=== PATIENT | male | born 1940 | race Caucasian/White ===

== ENCOUNTER → 2016-05-09 | Outpatient (CLI) | payer MEDICARE, OTHER | END | disposition home or self-care (01) | LOC: LABWHC1 11:12 | PROVIDERS: ATTEND Orthopaedic Surgery Sports Medicine | DX: Z01.812 Encounter for preprocedural laboratory examination (principal) | CPT/HCPCS: 87070 ==

== ENCOUNTER → 2016-05-16 | Outpatient (CLI) | payer MEDICARE ==
[2016-05-16 15:40] LABS: Basophils # (A) 0.1 k/uL (0-0.2); Basophils % (A) 1 %; CH 29.9; CHCM 33.1; Eosinophils # (A) 0.2 k/uL (0-0.7); Eosinophils % (A) 2 %; HCT 46.6 % (39.0-53.0); HDW 2.43; HGB 15.3 gm/dL (13.0-17.5); Luc % (Auto) 3; Lymphocytes # (A) 2.1 k/uL (1.0-4.8); Lymphocytes % (A) 23 %; MCH 29.8 pg (25.0-35.0); MCHC 32.9 g/dL (31.0-37.0); MCV 90.7 fL (80.0-100.0); Mean Platelet Volume 7.2; Monocytes # (A) 0.6 k/uL (0-1.0); Monocytes % (A) 7 %; Neutrophils # (A) 5.7 k/uL (1.3-7.7); Neutrophils % (A) 64 %; RBC 5.13 m/uL (4.30-5.90); RDW 13.2 % (11.5-15.5)
[2016-05-16 15:42] LABS: Appearance,Urine Clear (Clear); Bilirubin,Urine Negative (Negative); Glucose,Urine (UA) Negative (Negative); Ketones,Urine Negative (Negative); Leukocyte Esterase,Urine Negative (Negative); Nitrite,Urine Negative (Negative); Protein,Urine Negative (Negative); Specific Gravity,Urine 1.002 (1.001-1.035); UA Billing (MACRO vs. MICRO) CHEM; Urobilinogen,Urine <2.0 mg/dL (<2.0)
[2016-05-16 15:46] LABS: Partial Thromboplastin Time 24.4 sec (22.0-30.0); Prothrombin Time 10.1 sec (9.0-12.0)
[2016-05-16 15:48] LABS: ALT 30 U/L (21-72); AST 24 U/L (17-59); Alkaline Phosphatase 61 U/L (38-126); Anion Gap 9 mmol/L; Blood Urea Nitrogen 13 mg/dL (9-20); Calcium 9.7 mg/dL (8.4-10.2); Carbon Dioxide 28 mmol/L (22-30); Chloride 104 mmol/L (98-107); Glucose 82 mg/dL (74-99); Non-African American GFR(MDRD) >60 (>60 ml/min/1.73 sqM); Potassium 4.4 mmol/L (3.5-5.1); Sodium 141 mmol/L (137-145); Total Protein 7.2 g/dL (6.3-8.2)
== END | disposition home or self-care (01) ==
LOC: LABPAT 15:05
PROVIDERS: ATTEND Orthopaedic Surgery Sports Medicine
DX: Z01.812 Encounter for preprocedural laboratory examination (principal); Z79.01 Long term (current) use of anticoagulants
CPT/HCPCS: 80053; 81003; 85025; 85610; 85730; 87070

== ENCOUNTER 2016-05-30 09:02 | Inpatient (IN) | payer MEDICARE, OTHER ==
[2016-05-24 10:51] VITALS: BMI 27.8
[~2016-05-30 09:02] MED LIST: ACETAMINOPHEN TAB 500 MG TAB PO ONE; DEXAMETHASONE SOD PHOSPHATE 10 MG/ML 1 ML VIAL IV ONE; HYDROmorphone 1 MG/ML 1 ML SYRINGE IVP PRN; LACTATED RINGERS 1,000 ML IV SCH; MELOXICAM 7.5 MG TAB PO ONE; ONDANSETRON 4 MG/2 ML VIAL IVP ONE; ROPIVACAINE 246.25 MG, EPINEPHrine 0.5 MG, KETOROLAC 30 MG, cloNIDine HCL/PF 80 MCG, WA... MISCELLANE ONE; TRANEXAMIC ACID 1,000 MG in SODIUM CHLORIDE 0.9% 100 ML IVPB ONE; ceFAZolin 2 GM in SODIUM CHLORIDE 0.9% 100 ML IVPB ONE
[2016-05-30] MEDS ORDERED: LIDOCAINE 1% 20 ML VIAL (10MG/ML) FOR IV START INTRADERMA ONE (09:50)
[2016-05-30] MEDS ORDERED: diphenhydrAMINE 50 MG/ML 1 ML VIAL ONE (11:10)
[2016-05-30] MEDS ORDERED: fentaNYL (PF) 50 MCG/ML 2 ML AMP ONE (11:10)
[2016-05-30] MEDS ORDERED: ePHEDrine 50 MG/ML 1 ML AMP ONE (11:10)
[2016-05-30] MEDS ORDERED: TRANEXAMIC ACID 1,000 MG/10 ML VIAL ONE (11:10)
[2016-05-30] MEDS ORDERED: PROPOFOL 10 MG/ML 20 ML VIAL IV ONE (11:10)
[2016-05-30] MEDS ORDERED: MIDAZOLAM 2 MG/2 ML VIAL ONE (11:10)
[2016-05-30] MEDS ORDERED: MORPHINE SULFATE (PF) 0.3 MG/0.3 ML SYR ONE (11:10)
[2016-05-30] MEDS ORDERED: SODIUM CHLORIDE 0.9% 100 ML BAG ONE (11:10)
[2016-05-30] MEDS ORDERED: ceFAZolin 3,000 MG in SODIUM CHLORIDE 0.9% IRRIGATIO 3,000 ML IRRIGATION ONE (11:15)
[2016-05-30] MEDS ORDERED: LACTATED RINGERS 1,000 ML IV ONE (12:13)
[2016-05-30] MEDS ORDERED: MAGNESIUM HYDROXIDE 2,400 MG/10 ML CUP PO PRN (13:26)
[2016-05-30] MEDS ORDERED: NALOXONE 0.4 MG/ML 1 ML VIAL IV PRN ×2 (13:26→15:32)
[2016-05-30] MEDS ORDERED: ONDANSETRON 4 MG/2 ML VIAL IVP PRN (13:26)
[2016-05-30] MEDS ORDERED: DIAZEPAM 5 MG TAB PO PRN (13:26)
[2016-05-30] MEDS ORDERED: HYDROmorphone 1 MG/ML 1 ML SYRINGE IVP PRN ×2 (13:26)
[2016-05-30] MEDS ORDERED: TEMAZEPAM 15 MG CAP PO PRN (13:26)
[2016-05-30] MEDS ORDERED: NA PHOS,M-B/NA PHOS,DI-BA 133 ML ENEMA RECTAL PRN (13:26)
[2016-05-30] MEDS ORDERED: BISACODYL 10 MG SUPP RECTAL PRN (13:26)
--- NOTE | 2016-05-30 13:45 | XR ---
EXAMINATION TYPE: XR knee limited LT DATE OF EXAM: 05/30/2016 1:39 PM COMPARISON: NONE TECHNIQUE: 2 view submitted HISTORY: Post op FINDINGS: There is a prosthetic knee in near anatomic alignment. There is soft tissue edema and emphysema. IMPRESSION: 1. Postoperative change. Appears in near-anatomic alignment
[2016-05-30] MEDS: LACTATED RINGERS 1,000 ML IV SCH (14:23)
[2016-05-30] MEDS ORDERED: NALBUPHINE 10 MG/ML AMPUL IV PRN (15:32)
[2016-05-30] MEDS ORDERED: PROMETHAZINE INJ 6.25 MG in SODIUM CHLORIDE 0.9% 50 ML IVPB PRN (15:32)
[2016-05-30] MEDS ORDERED: MORPHINE SULFATE 4 MG/ML SYRINGE IVP PRN (15:32)
[2016-05-30] MEDS ORDERED: diphenhydrAMINE 50 MG/ML 1 ML VIAL IVP PRN (15:32)
[2016-05-30] MEDS: SENNOSIDES-DOCUSATE SODIUM 1 EACH TAB PO SCH ×2 (20:41→20:45)
[2016-05-30] MEDS: ceFAZolin 2 GM in SODIUM CHLORIDE 0.9% 100 ML IVPB SCH (20:41)
[2016-05-30] MEDS: ATORVASTATIN 10 MG TAB PO SCH (20:45)
[2016-05-30] MEDS: ASPIRIN 325 MG TAB PO SCH (20:48)
[2016-05-30] MEDS ORDERED: ASPIRIN 81 MG CHEW PO SCH (21:00)
--- NOTE | 2016-05-30 21:55 | CONS ---
DATE OF CONSULTATION: REASON FOR CONSULTATION: Recommendations regarding antihypertensive medications. Perioperative hypertension management. The patient is a very pleasant 76 -year-old gentleman, he was admitted to the hospital for left knee arthroplasty. The patient successfully underwent surgery. The patient last night took Coumadin as DVT prophylaxis for left knee surgery. The patient clinically doing well. The patient denies any fever or chills. The patient denies any nausea and vomiting, dysuria. The patient still has a Toth catheter. The patient still has a Toth catheter. The patient has surgical drain at this point of time. REVIEW OF SYSTEMS: CONSTITUTIONAL: No fever, no malaise, no fatigue. HEENT: No recent visual problems or hearing problems. Denied any sore throat. CARDIOVASCULAR: No chest pain, orthopnea, PND, no palpitations, no syncope. PULMONARY: No shortness of breath, no cough, no hemoptysis. GASTROINTESTINAL: No diarrhea, no nausea, no vomiting, no abdominal pain. Normoactive bowel sounds. NEUROLOGICAL: No headaches, no weakness, no numbness. HEMATOLOGICAL: Denies any bleeding or petechiae. GENITOURINARY: Denies any burning micturition, frequency, or urgency. MUSCULOSKELETAL/RHEUMATOLOGICAL: Defer to orthopedic surgery. ENDOCRINE: Denies any polyuria or polydipsia. The rest of the 14 point review of systems is negative. PAST MEDICAL HISTORY: Significant for coronary artery disease, hyperlipidemia, hypertension, osteoarthritis, myocardial infarction in the past, left eye cataract surgery, cardiac catheterization and stent placement in the past, hernia repair, left knee arthroscopy in the past. SOCIAL HISTORY: Former smoker. Quit smoking 30 years ago. Denied any alcohol abuse or any drug abuse. FAMILY HISTORY: Significant for DVT. PHYSICAL EXAMINATION: Temperature 98.5, pulse of 67, respiratory rate of 16, blood pressure is 103/57, saturating at 96% on room air. GENERAL: The patient is alert and oriented x3, not in any acute distress. Well developed, well nourished. HEENT: Pupils are round and equally reacting to light. EOMI. No scleral icterus. No conjunctival pallor. Normocephalic, atraumatic. No pharyngeal erythema. No thyromegaly. CARDIOVASCULAR: S1 and S2 present. No murmurs, rubs, or gallops. PULMONARY: Chest is clear to auscultation, no wheezing or crackles. ABDOMEN: Soft, nontender, nondistended, normoactive bowel sounds. No palpable organomegaly. MUSCULOSKELETAL: Defer to orthopedic surgery. EXTREMITIES: No cyanosis, clubbing, or pedal edema. NEUROLOGICAL: Gross neurological examination did not reveal any focal deficits. SKIN: No rashes. LABORATORY DATA: None available. ASSESSMENT AND PLAN: 1. Hypertension and prevention of perioperative hypertension. I will hold off on Lisinopril continue with atenolol 2. Coronary artery disease. 3. Hyperlipidemia. 4. Osteoarthritis status post left knee arthroplasty management as per primary service. 5. DVT prophylaxis per primary service for primary service. For above-mentioned chronic medical problems, I will go ahead and continue his home medications except for Lisinopril to monitor blood pressure, management of pain and DVT prophylaxis as per primary service. Thank you for letting me participate in this patient's care. We will continue to follow.
[2016-05-31] MEDS: LACTATED RINGERS 1,000 ML IV SCH ×2 (03:35→11:24)
--- NOTE | 2016-05-31 07:04 | OP ---
DATE OF SERVICE: 05/30/2016 SURGEON: CAMERON MORALES MD [employer] CONSULTANT: Silvino Granger PA-C PREOPERATIVE DIAGNOSIS: Left knee osteoarthrosis. POSTOPERATIVE DIAGNOSIS: Left knee osteoarthrosis. OPERATION: Left total knee arthroplasty. ANESTHESIA: Spinal with sedation. ESTIMATED BLOOD LOSS: 100 mL. TOURNIQUET TIME: 61 minutes at 250 mmHg. SPECIMENS REMOVED: COMPLICATIONS: None apparent. DRAINS: None. DISPOSITION: Post anesthesia care unit. OPERATIVE FINDINGS: INDICATIONS: Marvin is a very pleasant 76-year-old male with long-standing history of left knee pain. History and physical examination consistent with advanced left knee osteoarthrosis. He has been through significant nonoperative management up to this point. Further treatment options were discussed and he has decided to go forward with a left total knee arthroplasty. The risks of the procedure were discussed with him in detail. These risks include, but are not limited to risk of infection, nerve damage, bleeding, pain, and a risk of deep vein thrombosis, which could lead to fatal pulmonary embolism. There was also a risk of loosening of the implant, which could require revision operation. The patient understands these risks. All of his questions with regards to the procedure were answered to his satisfaction. An appropriate informed consent was obtained. DESCRIPTION OF THE PROCEDURE: The patient was identified in the preoperative holding area. Surgical site was marked by both the patient and myself. He was given 2 grams of Ancef IV for prophylactic purposes. He was then transferred to the operative suite where he was placed supine on the operating room table. A spinal anesthetic was then administered and dosed by the anesthesia department without apparent complication. Examination under anesthesia was then performed. The patient was 10 degrees shy of full extension. He had 100 degrees of flexion and the medial collateral ligament, lateral collateral ligament and posterior cruciate ligaments were stable. Tourniquet was then placed high on the left upper thigh, well padded in preparation for surgery. The patient's left lower extremity was then prepped and draped in the usual sterile fashion. Standard surgical pause was then undertaken to ensure that we were operating on the correct site and that appropriate preoperative antibiotics had been given. All staff in the room were in agreement and we proceeded. The outlines of the patella were marked with surgical pen. A planned 12 cm vertical incision centered over the patella was marked with a surgical pen. The leg was then exsanguinated with an Esmarch dressing. The knee was then flexed and the tourniquet inflated to 250 mmHg. The total tourniquet time for the procedure was 61 minutes. Incision was then made with a 10 blade scalpel. Dissection was carried down sharply to the overlying fascia. Great care was taken to minimize the skin flaps. The knee was then exposed using a standard medial parapatellar approach. A small cuff of quadriceps tendon was then left for suturing. He was in quite a bit of varus preoperatively. A standard medial release was then made. Superficial medial collateral ligament was dissected off the bone around to the posterior aspect of the proximal tibia. The medial meniscus was then excised as well. The lateral meniscus was also released anteriorly. The leg was then externally rotated. The patella was then everted and the knee was flexed. Retractors were then placed to protect the collateral ligaments. I then proceeded to remove the infrapatellar fat pad. This was excised sharply tangentially with the fibers of the patellar tendon. I then proceeded with removal peripheral osteophytes. This was done with a rongeur. I then proceeded with distal femoral resection. He had a flexion contracture. I planned to take an extra 2 mm resection off the distal femur. The femoral canal was then entered in the midline of the femur approximately 10 mm anterior to the origin of the posterior cruciate ligament. The sandra was then advanced down the center of the femur and the sandra was placed intramedullary. Based on preoperative radiographs, the angle between the anatomic and mechanical axis of the femur was approximately 4 to 5 degrees. The valgus angle with this femoral cutting guide was then set at 4 degrees for the left knee. The distal femoral cutting guide was then advanced over the intramedullary sandra. This was seated firmly against the femur. I then, as mentioned, planned to take 11 mm off of the distal femur. The cutting block was then secured onto the femur with pins. Jig was then removed and the distal femoral cuts were made through the slot of the block. The pins were then removed and the distal femoral cutting block was removed. The accuracy of the distal femoral cuts was checked with 2 flat bars. I then proceeded with femoral sizing. The posterior referencing sizing guide was held firmly against the resected distal surface of the femur. Posterior condyles were resting on the posterior plane of the guide. The sizing status was then placed onto the anterior femur. The size was measured as a size 11. I then assessed for femoral rotation. The plan was for 3 degrees of external rotation. 3 degrees of external rotation was placed onto the jig. These holes were then marked. I then confirmed rotation by 3 separate methods. This was done using the epicondylar axis as well as Whitesides line and posterior referencing. It was deemed that the external rotation was proper. I then went forward placing the femoral cutting block. This was placed over the previously placed pinholes. The garrett wing was then placed onto the anterior slots to ensure that we would not notch the anterior femur with the anterior femoral cut. I then proceeded with the anterior femoral cut. This was flushed with the anterior cortex of the femur. Posterior cuts were then made followed by the anterior chamfer cut and the posterior chamfer cut. The cutting block was then removed. Throughout the resection, the collateral ligaments were protected with retractors. I then placed a trial size 11 femur. It fit very nice medial to lateral and fit flush with the distal end of the femur. The drill holes were then made. I then proceeded with the tibial cut. I planned for a cruciate-retaining knee. The guide was placed and set for varus valgus and for slope. The height was set for an approximate 2 mm resection from the medial tibial plateau, which was the lower side. I was happy with the alignment and the amount of resection. The cutting block was then pinned to the proximal tibia. The alignment sandra was removed and the proximal tibia was resected with the reciprocating saw. Again this was done with retractors, protecting the collateral ligaments as well as the posterior cruciate ligament. I then proceeded to evaluate the flexion and extension gaps. A 10 mm block was placed. The flexion and extension gaps were equal. I then proceeded with resection of the posterior osteophytes. He had very extensive posterior osteophytes. This was done using curved osteotome. This resected the posterior osteophytes and posterior capsule stripping was also done at this time off the posterior aspect of the femur. The osteophytes were removed. I then proceeded with resection of the patella. Thickness of the patella was measured using the caliper. The thickness was 26 mm. The thickness of the anticipated patellar dome was taken into account. Resection was then performed and confirmed to be equal in 4 quadrants using the caliper. Approximately 14 mm of bone remained after the resection. A 35 x 9 mm standard patellar trial was then placed. The holes were then drilled and the trial was then placed. I then proceeded with sizing tibial plate. A size G tibial plate fit very nicely. I then placed a trial femur, the tibial tray and the patellar button. A 10 mm trial tibial insert was also placed. The components fit very nicely. He had full extension and flexion. The extension and flexion gaps were equal and stable to varus and valgus stress. The patella tracked appropriately. The tibial tray rotation was then marked with a Bovie. This was externally rotated properly. I then proceeded with tibial preparation. I first drilled femoral holes and removed femoral component. The tibial tray was then set for proper external rotation as well as mediolateral placement onto the tibia. It was then pinned into place. I then proceeded with punching the keel. I then decided to proceed with cementing of all of our components. The knee was thoroughly irrigated with sterile saline solution via pulse lavage. The lateral geniculate artery was identified and cauterized. All blood was removed from the bone of the tibia, femur and patella with pulse lavage. I then proceeded with cementing. Two packs of antibiotic bone cement were prepared on the back table by the forklift technician. I then proceeded with cementing of the tibia first. The cement was impacted in the keel as well as deeply seated into bone. A second coat of cement was then placed. The tibia was then impacted into place. Excess cement was removed with cushings and jokers. I then proceeded with cementing of femoral component. The femoral component was also cemented using standard technique. Excess cement was removed. A 10 mm trial insert was then placed into the knee. It was brought into full extension with constant axial load placed until the cement had hardened. The patellar component was then cemented. This was held firmly with a compressive device until the cement had dried. When the cement had dried, the knee was taken out of extension. All excess cement was removed from around the prosthesis. I then trialed the knee with a 10 mm insert. Flexion-extension gaps were appropriate. The knee came into full extension. I decided to go forward with a 10 mm crosslinked cruciate retaining tibial insert. Polyethylene was then placed onto the tibial tray and locked. The knee was then reduced. The knee was again further irrigated with sterile saline solution with antibiotic added. The tourniquet was then deflated. Total tourniquet time for the procedure was 61 minutes at 250 mmHg. Final components were a Bassam Persona size 11 cruciate-retaining femoral component, a size G tibial tray, a 10 mm cruciate retaining polyethylene insert and a 35 x 9 mm patella. I then proceeded with closure. Again, the knee was thoroughly irrigated. The quadriceps tendon and the medial retinaculum were reapproximated with #2 Ethibond suture. The extensor mechanism was then closed with running #2 Quill suture. Subcutaneous tissues were closed with 2-0 Vicryl interrupted suture. Skin was closed with running 3-0 Quill suture. Dermabond was applied to the incision. Sterile compressive dressings were then applied. All sponge and needle counts were deemed correct prior to closure. The patient tolerated the procedure without apparent complication. He was transferred to recovery room in stable condition.
[2016-05-31 07:54] LABS: Basophils % (A) 0 %; CH 29.1; Eosinophils % (A) 0 %; HCT 38.9 % (39.0-53.0); HDW 2.37; HGB 12.8 gm/dL (13.0-17.5); Luc # (Auto) 0.14; Luc % (Auto) 1; Lymphocytes % (A) 8 %; MCHC 32.8 g/dL (31.0-37.0); MCV 88.2 fL (80.0-100.0); Monocytes # (A) 0.8 k/uL (0-1.0); Monocytes % (A) 6 %; Neutrophils # (A) 11.5 k/uL (1.3-7.7); Neutrophils % (A) 85 %; WBC 13.4 k/uL (3.8-10.6); WBC (Perox) 13.32
[2016-05-31] MEDS: HYDROcodone/APAP 7.5-325MG 1 EACH TAB PO PRN ×3 (08:25→20:47)
[2016-05-31] MEDS: ASPIRIN 325 MG TAB PO SCH ×2 (08:25→20:22)
[2016-05-31] MEDS: ATENOLOL 50 MG TAB PO SCH (08:26)
[2016-05-31] MEDS: ceFAZolin 2 GM in SODIUM CHLORIDE 0.9% 100 ML IVPB SCH (08:53)
--- NOTE | 2016-05-31 09:27 | P.PN ---
Subjective Principal diagnosis: Status post left total knee arthroplasty Patient is pleasant 76-year-old male seen at bedside this morning. He is postop day #1 from left total knee arthroplasty performed by Dr. Peraza. He has no new complaints. He denies numbness or tingling. Review of systems is negative for fever, chills, chest pain, shortness breath, nausea, vomiting, dizziness, headaches or other. Objective - Vital Signs Vital signs: Vital Signs Temp 97.2 F L 05/31/16 07:00 Pulse 70 05/31/16 08:00 Resp 16 05/31/16 08:00 BP 144/67 05/31/16 07:00 Pulse Ox 97 05/31/16 07:00 Intake & Output 05/30/16 05/31/16 05/31/16 18:59 06:59 18:59 Intake Total 2000 900 Output Total 155 60 430 Balance 1846 840 -430 Intake: IV 2000 900 Lactated Ringers 1,000 ml 900 @ 100 mls/hr IV .Q10H [facility] Rx#:[id number] Output: Urine 55 60 430 Uretheral (Toth) 400 Estimated Blood Loss 100 Other: Voiding Method Indwelling Catheter Indwelling Catheter - Exam Inspection of the left lower extremity and surgical wound are benign. There is no active bleeding, drainage or dehiscence. Sensation to touch is intact throughout the left lower extremity. He has active motor at the hip, knee, ankle, foot and toes. Calf is soft and nontender. There is 2+ dorsalis pedis pulse intact and less than 2 second cap refill. - Constitutional General appearance: Present: no acute distress - Psychiatric Psychiatric: Present: A&O x's 3, appropriate affect, intact judgment & insight - Labs CBC & Chem 7: 05/31/16 06:53 Labs: Abnormal Lab Results - Last 24 Hours (Table) 05/31/16 Range/Units 06:53 WBC 13.4 H (3.8-10.6) k/uL Hgb 12.8 L (13.0-17.5) gm/dL Hct 38.9 L (39.0-53.0) % Neutrophils # 11.5 H (1.3-7.7) k/uL Assessment and Plan (1) Status post total knee replacement, left Narrative/Plan: Patient will continue with routine postop orthopedic protocol including pain management, wound care, physical therapy, DVT prophylaxis and medical management. Expect that he will transfer to an extended care facility in the next few days for rehabilitation. Status: Acute Time with Patient: Less than 30
--- NOTE | 2016-05-31 10:23 | P.PN ---
Subjective status post duramorph day one; doing ok; no spinal headache. Objective - Vital Signs Vital signs: Vital Signs Temp 97.2 F L 05/31/16 07:00 Pulse 70 05/31/16 08:00 Resp 16 05/31/16 08:00 BP 144/67 05/31/16 07:00 Pulse Ox 97 05/31/16 07:00 Intake & Output 05/30/16 05/31/16 05/31/16 18:59 06:59 18:59 Intake Total 2000 900 Output Total 155 60 430 Balance 1846 840 -430 Intake: IV 2000 900 Lactated Ringers 1,000 ml 900 @ 100 mls/hr IV .Q10H [facility] Rx#:[id number] Output: Urine 55 60 430 Uretheral (Toth) 400 Estimated Blood Loss 100 Other: Voiding Method Indwelling Catheter Indwelling Catheter - Labs CBC & Chem 7: 05/31/16 06:53 Labs: Abnormal Lab Results - Last 24 Hours (Table) 05/31/16 Range/Units 06:53 WBC 13.4 H (3.8-10.6) k/uL Hgb 12.8 L (13.0-17.5) gm/dL Hct 38.9 L (39.0-53.0) % Neutrophils # 11.5 H (1.3-7.7) k/uL
[2016-05-31] MEDS: MULTIVITAMINS, THERA 1 EACH TAB PO SCH (14:46)
--- NOTE | 2016-05-31 18:14 | PN ---
Patient is a 76-year-old admitted for left knee arthroplasty. Patient is clinically doing well. Patient did pass gas. I am starting him on 5 mg of lisinopril today because of his increasing blood pressure. REVIEW OF SYSTEMS: CARDIOVASCULAR: No chest pain, no orthopnea, no PND, no palpitations. PULMONARY: Denied any shortness of breath. No cough or hemoptysis. GASTROINTESTINAL: No diarrhea, nausea or vomiting. No abdominal pain. Normoactive bowel sounds. NEUROLOGIC: No headaches, no weakness, no numbness. Medications were reviewed. PHYSICAL EXAMINATION: VITAL SIGNS: Temperature 97.2, pulse of 70, respiratory rate of 16. Blood pressure is 144/67. Saturating at 97% on room air. GENERAL: The patient is alert and oriented x3, not in any acute distress. Well developed, well nourished. HEENT: Pupils are round and equally reacting to light. EOMI. No scleral icterus. No conjunctival pallor. Normocephalic, atraumatic. No pharyngeal erythema. No thyromegaly. CARDIOVASCULAR: S1 and S2 present. No murmurs, rubs, or gallops. PULMONARY: Chest is clear to auscultation, no wheezing or crackles. ABDOMEN: Soft, nontender, nondistended, normoactive bowel sounds. No palpable organomegaly. MUSCULOSKELETAL: No joint swelling or deformity. EXTREMITIES: No cyanosis, clubbing, or pedal edema. NEUROLOGICAL: Gross neurological examination did not reveal any focal deficits. SKIN: No rashes. LABORATORY DATA: WBC count elevated to 13,400, which is a reactive response. ASSESSMENT AND PLAN: 1. Leukocytosis without any signs or symptoms of infection; it is a reactive response. 2. Hypertension. Continue with atenolol. Started on 5 mg of lisinopril. If patient is discharged, he can be continued on the home dose of lisinopril and can be discharged. 3. Coronary artery disease. 4. Hyperlipidemia. 5. Osteoarthritis. DVT prophylaxis and pain management as mentioned above. Thank you for letting me participate in this patient's care. If the patient stays here until Friday, will follow the patient on Friday.
[2016-05-31] MEDS: ATORVASTATIN 10 MG TAB PO SCH (20:21)
[2016-05-31] MEDS: SENNOSIDES-DOCUSATE SODIUM 1 EACH TAB PO SCH (20:47)
[2016-06-01] MEDS: HYDROcodone/APAP 7.5-325MG 1 EACH TAB PO PRN ×4 (02:16→18:01)
[2016-06-01] MEDS: ATENOLOL 50 MG TAB PO SCH (07:38)
[2016-06-01] MEDS: MULTIVITAMINS, THERA 1 EACH TAB PO SCH (07:38)
[2016-06-01] MEDS: LISINOPRIL 5 MG TAB PO SCH (07:38)
[2016-06-01] MEDS: ASPIRIN 325 MG TAB PO SCH ×2 (07:38→20:21)
--- NOTE | 2016-06-01 08:41 | P.PN ---
Subjective Principal diagnosis: Status post left total knee arthroplasty This is a 76 year-old male post left total knee arthroplasty. This is post-op day 2. The patient was evaluated at the bedside today. The patient denies nausea, vomiting, abdominal pain, shortness of breath, and chest pain this morning. He states his pain is controlled at this time. The patient has not been up with physical therapy yet this morning but ambulated to the bathroom yesterday. Objective - Vital Signs Vital signs: Vital Signs Temp 98.4 F 06/01/16 02:17 Pulse 60 06/01/16 02:17 Resp 19 06/01/16 02:17 BP 121/59 06/01/16 02:17 Pulse Ox 99 06/01/16 02:17 Intake & Output 05/31/16 06/01/16 06/01/16 18:59 06:59 18:59 Intake Total 200 Output Total 430 Balance -230 Intake: IV 200 Lactated Ringers 1,000 ml 200 @ 100 mls/hr IV .Q10H [facility] Rx#:[id number] Output: Urine 430 Uretheral (Toth) 400 - Exam The patient does not appear in acute distress. Alert and orientated x3. Dressing is clean dry and intact. Incision appears fine with no erythema or active drainage. Calf is soft and nontender. Good foot and ankle motion without difficulty. Sensation and circulatory status is intact. - Labs CBC & Chem 7: 05/31/16 06:53 Assessment and Plan (1) Status post total knee replacement, left Status: Acute (2) Primary localized osteoarthritis of left knee Status: Acute Plan: 1. Continue pain control 2. Anticoagulation with Aspirin BID 3. Continue physical therapy and ambulation 4. Anticipate discharge to skilled rehab on Friday
[2016-06-01] MEDS: LACTATED RINGERS 1,000 ML IV SCH (09:50)
[2016-06-01] MEDS: hydrOXYzine PAMOATE 25 MG CAP PO PRN ×2 (12:58→18:01)
[2016-06-01] MEDS: ATORVASTATIN 10 MG TAB PO SCH (20:21)
[2016-06-01] MEDS: SENNOSIDES-DOCUSATE SODIUM 1 EACH TAB PO SCH (20:21)
[2016-06-02] MEDS: HYDROcodone/APAP 7.5-325MG 1 EACH TAB PO PRN ×4 (00:37→18:02)
[2016-06-02] MEDS: hydrOXYzine PAMOATE 25 MG CAP PO PRN ×4 (00:38→18:01)
[2016-06-02 07:22] LABS: Basophils % (A) 0 %; CH 29.1; CHCM 32.9; Eosinophils # (A) 0.2 k/uL (0-0.7); Eosinophils % (A) 2 %; HCT 33.1 % (39.0-53.0); HDW 2.34; Luc # (Auto) 0.24; Luc % (Auto) 3; Lymphocytes # (A) 1.4 k/uL (1.0-4.8); Lymphocytes % (A) 16 %; MCH 29.4 pg (25.0-35.0); MCHC 33.1 g/dL (31.0-37.0); MCV 88.8 fL (80.0-100.0); Mean Platelet Volume 6.9; Monocytes # (A) 0.5 k/uL (0-1.0); Monocytes % (A) 6 %; Neutrophils # (A) 6.1 k/uL (1.3-7.7); Neutrophils % (A) 73 %; RBC 3.73 m/uL (4.30-5.90); RDW 13.2 % (11.5-15.5); WBC 8.3 k/uL (3.8-10.6)
[2016-06-02] MEDS: ASPIRIN 325 MG TAB PO SCH ×2 (07:29→20:32)
[2016-06-02] MEDS: ATENOLOL 50 MG TAB PO SCH (07:30)
[2016-06-02] MEDS: MULTIVITAMINS, THERA 1 EACH TAB PO SCH (07:30)
[2016-06-02] MEDS: LISINOPRIL 5 MG TAB PO SCH (07:30)
--- NOTE | 2016-06-02 09:21 | P.PN ---
Subjective Principal diagnosis: Status post left total knee arthroplasty This is a 76 year-old male post left total knee arthroplasty. This is post-op day 3. The patient was evaluated at the bedside today. The patient denies nausea, vomiting, abdominal pain, shortness of breath, and chest pain this morning. He states his pain is controlled at this time. The patient has been up with physical therapy and ambulated in the hallway. Objective - Vital Signs Vital signs: Vital Signs Temp 98.8 F 06/01/16 20:00 Pulse 65 06/01/16 20:00 Resp 18 06/01/16 20:00 BP 120/57 06/01/16 20:00 Pulse Ox 96 06/01/16 20:00 Intake & Output 06/01/16 06/02/16 06/02/16 18:59 06:59 18:59 Intake Total 640 900 Balance 640 900 Intake: IV 900 Lactated Ringers 1,000 ml 900 @ 100 mls/hr IV .Q10H [facility] Rx#:[id number] Oral 640 Other: Voiding Method Toilet Urinal # Voids 2 - Exam The patient does not appear in acute distress. Alert and orientated x3. Dressing is clean dry and intact. Incision appears fine with no erythema or active drainage. Calf is soft and nontender. Good foot and ankle motion without difficulty. Sensation and circulatory status is intact. - Labs CBC & Chem 7: 06/02/16 06:54 Labs: Abnormal Lab Results - Last 24 Hours (Table) 06/02/16 Range/Units 06:54 RBC 3.73 L (4.30-5.90) m/uL Hgb 11.0 L (13.0-17.5) gm/dL Hct 33.1 L (39.0-53.0) % Assessment and Plan (1) Status post total knee replacement, left Status: Acute (2) Primary localized osteoarthritis of left knee Status: Acute Plan: 1. Continue pain control 2. Anticoagulation with Aspirin BID 3. Continue physical therapy and ambulation 4. Anticipate discharge to skilled rehab tomorrow
[2016-06-02] MEDS: ATORVASTATIN 10 MG TAB PO SCH (20:32)
[2016-06-02] MEDS: SENNOSIDES-DOCUSATE SODIUM 1 EACH TAB PO SCH (20:32)
[2016-06-03] MEDS: hydrOXYzine PAMOATE 25 MG CAP PO PRN ×2 (03:24→11:28)
[2016-06-03] MEDS: HYDROcodone/APAP 7.5-325MG 1 EACH TAB PO PRN ×2 (03:24→11:29)
--- NOTE | 2016-06-03 07:36 | P.DS ---
Providers Date of admission: 05/30/16 09:02 Expected date of discharge: 06/03/16 Attending physician: Lan Peraza Consults: 05/30/16 13:26 Consult Physician Routine Consulting Provider: Alen Anderson Consult Reason/Comments: post op medical management Do you want consulting provider notified?: Yes Primary care physician: Stated None - Discharge Diagnosis(es) (1) Status post total knee replacement, left Current Visit: Yes Status: Acute Priority: Medium (2) Primary localized osteoarthritis of left knee Current Visit: Yes Status: Acute Hospital Course: This is a pleasant 76-year-old male last seen in our office with complaints of left knee pain. Patient has known history of degenerative arthritis of the left knee and presented to discuss options. After discussion and consideration , the patient elected to proceed with a left total knee arthroplasty. Patient was seen preoperatively, and medically cleared for surgery by cardiology. Patient was admitted to [facility] underwent left total knee arthroplasty on 05/30/[address] Peraza. The procedure was performed without complications or sequelae. The patient is seen and evaluated at bedside today. Pain is well-controlled. Patient has no new complaints today and denies any fevers, chills, nausea, vomiting, or shortness of breath. Vital signs are stable. Dressing is clean dry and intact. Incision looks fine with no erythema or active drainage. Calf is soft and nontender. Patient has full foot and ankle motion without difficulty. Patient's left lower extremity is neurovascularly intact. The patient is orthopedically stable for discharge to skilled rehab today. See medication reconciliation for accurate list of discharge medications. Pertinent Studies: Laboratory Tests 06/02/16 06:54 WBC 8.3 RBC 3.73 L Hgb 11.0 L Hct 33.1 L Patient Condition at Discharge: Stable Plan - Discharge Summary New Discharge Prescriptions: HYDROcodone/APAP 7.5-325MG [[place] 7.5-325] 1 - 2 each PO Q6HR PRN #90 tab PRN Reason: Pain Aspirin 325 mg PO BID #60 tab Discharge Medication List Aspirin [Adult Low Dose Aspirin EC] 81 mg PO HS 05/26/15 [History] Atenolol [Tenormin] 50 mg PO DAILY 05/26/15 [History] Simvastatin [Zocor] 20 mg PO HS 05/26/15 [History] Naproxen Sodium [Aleve] 220 mg PO BID PRN 08/21/15 [History] Lisinopril [Zestril] 10 mg PO DAILY 05/30/16 [History] Warfarin Sodium [Warfarin Sodium] 2.5 mg PO DAILY 05/30/16 [History] Warfarin [Coumadin] 7.5 mg PO ONCE 05/30/16 [History] HYDROcodone/APAP 7.5-325MG [[place] 7.5-325] 1 - 2 each PO Q6HR PRN #90 tab [Rx] Aspirin 325 mg PO BID #60 tab 06/01/16 [Rx] Follow up Appointment(s)/Referral(s): Lan Peraza MD [STAFF PHYSICIAN] - 2 Weeks Activity/Diet/Wound Care/Special Instructions: Weight-bear as tolerated Take meds as directed Keep wound clean and dry May shower in 72 hours post-op Follow-up with Dr. Peraza in office [phone] Discharge Disposition: TRANSFER TO SNF/ECF
[2016-06-03] MEDS: ASPIRIN 325 MG TAB PO SCH ×2 (08:23→21:31)
[2016-06-03] MEDS: MULTIVITAMINS, THERA 1 EACH TAB PO SCH (11:28)
[2016-06-03] MEDS: LISINOPRIL 5 MG TAB PO SCH (16:55)
[2016-06-03] MEDS: ATENOLOL 50 MG TAB PO SCH (16:55)
[2016-06-03] MEDS: SODIUM CHLORIDE 0.9% 1,000 ML IV SCH (16:57)
--- NOTE | 2016-06-03 17:08 | P.PN ---
Subjective Date of service 06/03/2016. Progress note being dictated for Dr. Dolan. Interval history: This a 76-year-old gentleman admitted with osteoarthritis, status post left knee arthroplasty. Yesterday presented with hypertension and 5 mg of lisinopril initiated. Today Complaining of lightheadedness with getting up out of bed, nausea. States pain control improving.Passing flatus, no bowel movement. Incentive spirometer up to 3000. Denies any chest pain, palpitations or increased shortness of breath. Objective - Vital Signs Vital signs: Vital Signs Temp 98 F 06/03/16 08:25 Pulse 68 06/03/16 08:25 Resp 15 06/03/16 08:25 BP 92/55 06/03/16 08:25 Pulse Ox 98 06/03/16 08:25 Intake & Output 06/02/16 06/03/16 06/03/16 18:59 06:59 18:59 Other: Voiding Method Toilet Urinal # Voids 2 3 - Exam PHYSICAL EXAM: VITAL SIGNS: As above [] GENERAL: [Sitting up in bed, no acute distress] HEENT: [Pupils equal conjunctiva normal.] NECK: [Supple, no JVD] RESPIRATORY EFFORT:[Normal] LUNGS: [Clear, no wheezing crackles or rhonchi] CARDIOVASCULAR[regular S1 and S2, no murmurs rubs or gallops] GI: [Abdomen soft, nontender, positive bowel sounds.] PSYCH: [Alert and oriented -3, mood and affect normal.] NEURO: Gross neurological examination did not reveal any focal deficits - Labs CBC & Chem 7: 06/02/16 06:54 Assessment and Plan Plan: 1. [Osteoarthritis, status post left knee arthroplasty]. 2. [Leukocytosis, reactive. 3. [CAD. 4. [Hyperlipidemia]. 5. [Borderline hypotension]. Plan: Continue on current medication regime ,monitoring and symptomatic treatment. Lisinopril discontinued. Maintain beta rtu. IV fluids 0.9 at 100 MLS per hour initiated. CBC ordered for a.m. Hold discharge, continue monitoring overnight. Further recommendations to follow. The impression and plan of care has been dictated as directed. : I performed a H&P examination of this patient and discussed the same with the dictator. I agree with the dictator's note. Any additional findings/opinions/ etc. will be noted.
[2016-06-03] MEDS: ATORVASTATIN 10 MG TAB PO SCH (21:31)
[2016-06-03] MEDS: SENNOSIDES-DOCUSATE SODIUM 1 EACH TAB PO SCH (21:31)
[2016-06-03] MEDS: PANTOPRAZOLE 40 MG/10 ML VIAL IVP SCH (23:06)
[2016-06-03] MEDS: DOCUSATE 100 MG CAP PO SCH (23:06)
[2016-06-04] MEDS: SODIUM CHLORIDE 0.9% 1,000 ML IV SCH ×2 (04:22→19:18)
[2016-06-04 07:57] LABS: Anion Gap 12 mmol/L; Blood Urea Nitrogen 48 mg/dL (9-20); Calcium 8.2 mg/dL (8.4-10.2); Carbon Dioxide 21 mmol/L (22-30); Chloride 105 mmol/L (98-107); Glucose 124 mg/dL (74-99); Non-African American GFR(MDRD) >60 (>60 ml/min/1.73 sqM); Potassium 4.1 mmol/L (3.5-5.1); Sodium 138 mmol/L (137-145)
[2016-06-04 08:49] LABS: Basophils % (A) 0 %; CH 29.1; CHCM 33.7; Eosinophils % (A) 0 %; HDW 2.64; Luc # (Auto) 0.08; Luc % (Auto) 1; Lymphocytes # (A) 0.7 k/uL (1.0-4.8); Lymphocytes % (A) 7 %; MCH 29.2 pg (25.0-35.0); MCHC 33.6 g/dL (31.0-37.0); MCV 86.8 fL (80.0-100.0); Mean Platelet Volume 7.3; Monocytes # (A) 0.3 k/uL (0-1.0); Monocytes % (A) 3 %; Neutrophils # (A) 8.4 k/uL (1.3-7.7); Neutrophils % (A) 89 %; RBC 2.13 m/uL (4.30-5.90); RDW 13.8 % (11.5-15.5); WBC 9.5 k/uL (3.8-10.6); WBC (Perox) 10.26
[2016-06-04 09:07] LABS: HCT 18.5 % (39.0-53.0)
[2016-06-04 09:08] LABS: HGB 6.2 gm/dL (13.0-17.5)
[2016-06-04] MEDS: MULTIVITAMINS, THERA 1 EACH TAB PO SCH (09:28)
[2016-06-04] MEDS: PANTOPRAZOLE 40 MG/10 ML VIAL IVP SCH (09:28)
[2016-06-04] MEDS: DOCUSATE 100 MG CAP PO SCH ×2 (09:28→21:03)
--- NOTE | 2016-06-04 10:39 | P.PN ---
Subjective Principal diagnosis: Status post left total knee arthroplasty This is a 76 year-old male post left total knee arthroplasty. This is post-op day 5. The patient was evaluated at the bedside today. The patient denies nausea, vomiting, abdominal pain, shortness of breath, and chest pain this morning. He states his pain is controlled at this time. The patient is feeling dizzy and lightheaded today. His hemoglobin this morning was is 6.2. 2 units of PRBCs was ordered by medical management. Discharge to rehab is on hold at this time. Objective - Vital Signs Vital signs: Vital Signs Temp 98.3 F 06/04/16 00:30 Pulse 76 06/04/16 00:30 Resp 16 06/04/16 00:30 BP 115/56 06/04/16 00:30 Pulse Ox 99 06/04/16 00:30 Intake & Output 06/03/16 06/04/16 06/04/16 18:59 06:59 18:59 Intake Total 900 Output Total 250 300 1 Balance -250 600 -1 Intake: IV 900 Sodium Chloride 0.9% 1, 900 000 ml @ 100 mls/hr IV . Q10H [facility] Rx#:[id number] Output: Urine 250 300 Stool 1 Other: Voiding Method Toilet Urinal # Voids 1 2 # Bowel Movements 2 - Exam The patient does not appear in acute distress. Alert and orientated x3. Dressing is clean dry and intact. Incision appears fine with no erythema or active drainage. Calf is soft and nontender. Good foot and ankle motion without difficulty. There is increased bruising to the posterior aspect of the leg and swelling in the lower leg. Sensation and circulatory status is intact. - Labs CBC & Chem 7: 06/04/16 08:20 06/04/16 07:17 Labs: Abnormal Lab Results - Last 24 Hours (Table) 06/04/16 06/04/16 Range/Units 07:17 08:20 RBC 2.13 L (4.30-5.90) m/uL Hgb 6.2 L* D (13.0-17.5) gm/dL Hct 18.5 L* (39.0-53.0) % Neutrophils # 8.4 H (1.3-7.7) k/uL Lymphocytes # 0.7 L (1.0-4.8) k/uL Carbon Dioxide 21 L (22-30) mmol/L BUN 48 H (9-20) mg/dL Glucose 124 H (74-99) mg/dL Calcium 8.2 L (8.4-10.2) mg/dL Assessment and Plan (1) Status post total knee replacement, left Status: Acute (2) Primary localized osteoarthritis of left knee Status: Acute Plan: 1. Continue pain control 2. Anticoagulation with Aspirin BID 3. Hgb 6.2 today, 2 units of PRBCs ordered. Recheck CBC tomorrow morning. 4. Continue physical therapy and ambulation 5. Anticipate discharge to skilled rehab when stable
--- NOTE | 2016-06-04 12:05 | US ---
EXAMINATION TYPE: US venous doppler duplex LE LT DATE OF EXAM: 06/04/2016 11:13 AM COMPARISON: None CLINICAL HISTORY: blood clot. Left leg pain and bruising post knee surgery SIDE PERFORMED: Left VESSELS IMAGED: External Iliac Vein (EI) Common Femoral Vein Deep Femoral Vein Greater Saphenous Vein * Femoral Vein Popliteal Vein Proximal Calf Veins (* superficial vessels) Left Leg: Negative for DVT IMPRESSION: 1. No diagnostic evidence of DVT as visualized.
[2016-06-04] MEDS: ASPIRIN 325 MG TAB PO SCH ×2 (12:49→19:18)
[2016-06-04] MEDS: FUROSEMIDE 10 MG/ML 2 ML VIAL IV SCH ×2 (16:14→21:04)
--- NOTE | 2016-06-04 16:25 | PN ---
DATE OF SERVICE: 06/04/2016 Marvin is now postoperative day number four status post left total knee arthroplasty. He has done quite well in the immediate postoperative period and then started to feel quite different a little sick last night and into this morning. He noted that he had finally had a bowel movement yesterday and he relates to me that it was quite black and sticky. He has not had really any abdominal pain per se but he is just feeling that he does not have any energy today. He has no increase in his knee pain. His was at the bedside today when I saw him. On examination, he is resting comfortably. His T-max is 98.7 today, pulse rate was 89, blood pressure 146/69 and desatting 94% on room air. Examination of the knee: He does have some bruising around the back of the knee. He has his calf is soft and he has no increased swelling in his thigh. He has full flexion-extension, inversion and eversion of the ankle and full flexion and extension of all of his toes. Sensation is intact in his foot and normal. The knee itself the incision is healing nicely. No drainage and the knee has normal mild amount of postoperative swelling. I did examine his abdomen today. He has no pain to palpation about the abdomen. The abdomen is soft. Certainly does not examine like an acute abdomen to me. Laboratory values today: His hemoglobin this morning is 6.2 and his immediate postoperative hemoglobin was 12.8 on 05/31 and 11.0 on June 02. It has dropped quite a bit since. Of note, the stool occult blood had just come back, and that was positive. X-RAYS: Postoperative x-rays of the knee show the prosthesis in good position with no evidence of periprosthetic fracture. IMPRESSION: 1. Status post left total knee arthroplasty. 2. Postoperative acute hemoglobin dropped. PLAN: Certainly this is quite concerning. Mr. Roman is going to get 2 units of blood which has already been set up and is en route. He does have a positive occult blood in his stool. This is almost assuredly a GI source of bleeding for him. I did talk to Dr. Dolan who is working with Dr. Anderson the primary care doctor. We will have GI the gastrointestinal specialist, in the hospital see Mr. Roman and/or instructor adjunct surgical technician. All of and Mrs. Roman's questions were answered to their satisfaction. We will continue to follow.
--- NOTE | 2016-06-04 18:21 | P.PN ---
Subjective Date of service 06/04/2016. Progress note being dictated for Dr. Dolan. Interval history: This a 76-year-old gentleman admitted with osteoarthritis, status post left knee arthroplasty. Yesterday Complaining of lightheadedness, nausea. Received IV fluid hydration Denies any chest pain, palpitations or increased shortness of breath. This morning hemoglobin 6.2, symptomatic-feels tired, no energy, 2 units of packed RBCs ordered. Nauseated. Passed green stools. Later passed black stool. Stool for occult blood positive. GI consulted. Denies abdominal pain. Left leg Doppler negative for DVT. Pain controlled.Denies chest pain, palpitations or increasing shortness of breath. Objective - Vital Signs Vital signs: Vital Signs Temp 98.3 F 06/04/16 00:30 Pulse 76 06/04/16 00:30 Resp 16 06/04/16 00:30 BP 115/56 06/04/16 00:30 Pulse Ox 99 06/04/16 00:30 Intake & Output 06/03/16 06/04/16 06/04/16 18:59 06:59 18:59 Intake Total 900 Output Total 250 300 Balance -250 600 Intake: IV 900 Sodium Chloride 0.9% 1, 900 000 ml @ 100 mls/hr IV . Q10H [facility] Rx#:[id number] Output: Urine 250 300 Other: Voiding Method Toilet Urinal # Voids 1 2 # Bowel Movements 2 - Exam PHYSICAL EXAM: VITAL SIGNS: As above [] GENERAL: [Sitting up in bed, tired appearing HEENT: [Pupils equal conjunctiva normal.] NECK: [Supple, no JVD] RESPIRATORY EFFORT:[Normal] LUNGS: [Clear, no wheezing crackles or rhonchi] CARDIOVASCULAR[regular S1 and S2, no murmurs rubs or gallops] GI: [Abdomen soft, nontender, positive bowel sounds. No guarding, no rigidity] PSYCH: [Alert and oriented -3, mood and affect normal.] NEURO: Gross neurological examination did not reveal any focal deficits - Labs CBC & Chem 7: 06/04/16 08:20 06/04/16 07:17 Labs: Abnormal Lab Results - Last 24 Hours (Table) 06/04/16 06/04/16 Range/Units 07: 08:20 RBC 2.13 L (4.30-5.90) m/uL Hgb 6.2 L* D (13.0-17.5) gm/dL Hct 18.5 L* (39.0-53.0) % Neutrophils # 8.4 H (1.3-7.7) k/uL Lymphocytes # 0.7 L (1.0-4.8) k/uL Carbon Dioxide 21 L (22-30) mmol/L BUN 48 H (9-20) mg/dL Glucose 124 H (74-99) mg/dL Calcium 8.2 L (8.4-10.2) mg/dL Assessment and Plan Plan: 1. [Osteoarthritis, status post left knee arthroplasty]. 2. [Leukocytosis, reactive, resolved. 3. [CAD. 4. [Hyperlipidemia]. 5. [Borderline hypotension]. 6. Acute postoperative anemia, suspect upper GI bleed, transfusion of packed RBCs scheduled. Plan: Continue on current medication regime ,monitoring and symptomatic treatment. 2 units packed RBCs ordered. Aspirin on hold. Close monitoring of CBC with repeat CBC at 1800. GI consult initiated with recommendations pending. Further recommendations to follow. The impression and plan of care has been dictated as directed. : I performed a H&P examination of this patient and discussed the same with the dictator. I agree with the dictator's note. Any additional findings/opinions/ etc. will be noted.
[2016-06-04] MEDS: ATORVASTATIN 10 MG TAB PO SCH (21:03)
[2016-06-04] MEDS: SENNOSIDES-DOCUSATE SODIUM 1 EACH TAB PO SCH (21:03)
[2016-06-04 21:54] LABS: Basophils % (A) 0 %; CH 29.5; CHCM 34.7; Eosinophils # (A) 0.1 k/uL (0-0.7); Eosinophils % (A) 1 %; HCT 23.7 % (39.0-53.0); HDW 2.84; Luc # (Auto) 0.27; Luc % (Auto) 3; Lymphocytes # (A) 1.6 k/uL (1.0-4.8); Lymphocytes % (A) 16 %; MCH 29.6 pg (25.0-35.0); MCHC 34.7 g/dL (31.0-37.0); MCV 85.4 fL (80.0-100.0); Mean Platelet Volume 6.9; Monocytes # (A) 0.6 k/uL (0-1.0); Monocytes % (A) 6 %; Neutrophils # (A) 7.3 k/uL (1.3-7.7); Neutrophils % (A) 74 %; RBC 2.78 m/uL (4.30-5.90); RDW 14.3 % (11.5-15.5); WBC 9.9 k/uL (3.8-10.6); WBC (Perox) 10.32
[2016-06-04 22:04] LABS: HGB 8.2 gm/dL (13.0-17.5)
[2016-06-05] MEDS ORDERED: PANTOPRAZOLE 40 MG TABLET PO SCH (07:30)
--- NOTE | 2016-06-05 08:45 | P.PN ---
Subjective Principal diagnosis: Status post left total knee arthroplasty This is a 76 year-old male post left total knee arthroplasty. This is post-op day 6. The patient was evaluated at the bedside today. The patient denies nausea, vomiting, abdominal pain, shortness of breath, and chest pain this morning. He states his pain is controlled at this time. The patient is still feeling dizzy and lightheaded today. His hemoglobin is 8.2 today. A consult for Dr. Peña was placed yesterday due to probable GI bleeding. We are awaiting his recommendations. Objective - Vital Signs Vital signs: Vital Signs Temp 98.7 F 06/05/16 07:00 Pulse 79 06/05/16 07:00 Resp 16 06/05/16 07:00 BP 147/65 06/05/16 07:00 Pulse Ox 99 06/05/16 07:00 Intake & Output 06/04/16 06/05/16 06/05/16 18:59 06:59 18:59 Intake Total 1170 310 180 Output Total 1 400 Balance 1169 -90 180 Intake: IV 500 Sodium Chloride 0.9% 1, 500 000 ml @ 100 mls/hr IV . Q10H [facility] Rx#:[id number] Oral 360 180 Blood Product 310 310 Rc As-1 Unit 0 310 [id number] Rc Pheresis As-3 Unit 310 [id number] Output: Urine 400 Stool 1 Other: # Voids 1 - Exam The patient does not appear in acute distress. Alert and orientated x3. The patient's abdomen is soft and non-tender. Dressing is clean dry and intact. Incision appears fine with no erythema or active drainage. Calf is soft and nontender. Good foot and ankle motion without difficulty. There is increased bruising to the posterior aspect of the leg and swelling in the lower leg. Sensation and circulatory status is intact. - Labs CBC & Chem 7: 06/04/16 21:24 06/04/16 07:17 Labs: Abnormal Lab Results - Last 24 Hours (Table) 06/04/16 06/04/16 06/04/16 Range/Units 08:20 08:20 21:24 RBC 2.13 L 2.78 L (4.30-5.90) m/uL Hgb 6.2 L* D 8.2 L D (13.0-17.5) gm/dL Hct 18.5 L* 23.7 L (39.0-53.0) % Neutrophils # 8.4 H (1.3-7.7) k/uL Lymphocytes # 0.7 L (1.0-4.8) k/uL Crossmatch See Detail Assessment and Plan (1) Status post total knee replacement, left Status: Acute (2) Primary localized osteoarthritis of left knee Status: Acute Plan: 1. Continue pain control 2. Anticoagulation with Aspirin BID 3. Await GI recommendations regarding bleeding 4. Continue physical therapy and ambulation 5. Anticipate discharge to skilled rehab when stable
[2016-06-05 08:46] LABS: Basophils # (A) 0.1 k/uL (0-0.2); Basophils % (A) 1 %; CHCM 32.5; Eosinophils # (A) 0.1 k/uL (0-0.7); Eosinophils % (A) 1 %; HCT 26.6 % (39.0-53.0); HDW 2.97; HGB 8.7 gm/dL (13.0-17.5); Luc # (Auto) 0.22; Luc % (Auto) 2; Lymphocytes # (A) 1.4 k/uL (1.0-4.8); Lymphocytes % (A) 12 %; MCH 29.4 pg (25.0-35.0); MCHC 32.8 g/dL (31.0-37.0); MCV 89.8 fL (80.0-100.0); Mean Platelet Volume 6.7; Monocytes # (A) 0.7 k/uL (0-1.0); Monocytes % (A) 6 %; Neutrophils % (A) 78 %; RBC 2.96 m/uL (4.30-5.90); WBC 11.5 k/uL (3.8-10.6); WBC (Perox) 11.68
[2016-06-05] MEDS: ACETAMINOPHEN TAB 325 MG TAB PO PRN ×2 (08:55→18:52)
[2016-06-05] MEDS: DOCUSATE 100 MG CAP PO SCH ×2 (08:56→21:37)
[2016-06-05] MEDS: MULTIVITAMINS, THERA 1 EACH TAB PO SCH (08:57)
[2016-06-05 09:05] LABS: Anion Gap 14 mmol/L; Blood Urea Nitrogen 30 mg/dL (9-20); Calcium 8.8 mg/dL (8.4-10.2); Carbon Dioxide 22 mmol/L (22-30); Chloride 103 mmol/L (98-107); Glucose 154 mg/dL (74-99); Magnesium 2.2 mg/dL (1.6-2.3); Non-African American GFR(MDRD) >60 (>60 ml/min/1.73 sqM); Potassium 3.7 mmol/L (3.5-5.1); Sodium 139 mmol/L (137-145)
--- NOTE | 2016-06-05 09:27 | XR ---
EXAMINATION TYPE: XR chest 2V DATE OF EXAM: 06/05/2016 9:19 AM HISTORY: r/o pneumonia. REFERENCE: NONE. FINDINGS: The lungs are mildly overinflated but clear. Pleural spaces are clear. The heart is not enl arged. 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 IMPRESSION: NO ACUTE INTRATHORACIC ABNORMALITY.
--- NOTE | 2016-06-05 12:24 | P.CONS ---
History of Present Illness - Reason for Consult Consult date: 06/05/16 Possible GI bleed Requesting physician: Alen Anderson - History of Present Illness 76-year-old gentleman admitted 05/30/2016 with history of left knee osteoarthrosis status post left total knee arthroplasty 05/30/2016 with postoperative aspirin therapy, past medical history includes CAD, hyperlipidemia , hypertension, MD. Patient received 3 doses of Coumadin night prior to surgery for presurgical prophylaxis DVT. He has been maintained on postoperative full strength aspirin twice daily. 2 days ago patient had a black -colored bowel movement and another one this morning. Yesterday hemoglobin dropped to 6.2. Admission hemoglobin 12.8. MCV 86. BUN 48. Creatinine 0.9. Hemoccult stool positive. Platelet 276. Received 2 units of blood current hemoglobin 8.2. Poor appetite since surgery. Denies gross hematemesis or hematochezia. No history of peptic ulcer disease or EGD. Review of Systems Constitutional: Denies fever, chills, sweats, weight gain, or loss. HEENT: Negative for migraines, blurred vision or loss, earaches, drainage, tinnitus, oral mucosal lesions, dysphagia, or odynophagia. Cardiac: CAD. Hyperlipidemia. Hypertension. MD. Negative for chest pain, arrhythmias, or palpitation. Respiratory: Negative for shortness of breath, hemoptysis, cough, or sputum production. Gastrointestinal: See HPI for pertinent findings. Genitourinary: Negative for hematuria, urgency, frequency, polyuria, dysuria, or penile discharge. Musculoskeletal: Osteoarthritis. Neurologic: Negative for stroke or TIA. Endocrine: Negative for thyroid problems. Skin: Negative for rash or itching. Psychiatric: Negative history for depression and anxiety All systems: negative (See HPI) Past Medical History Past Medical History: Coronary Artery Disease (CAD), Hyperlipidemia, Hypertension, Myocardial Infarction (MD), Osteoarthritis (OA) Additional Past Medical History / Comment(s): CATARACT LT EYE Last Myocardial Infarction Date:: unknown History of Any Multi-Drug Resistant Organisms: None Reported Past Surgical History: Heart Catheterization With Stent, Hernia Repair, Orthopedic Surgery Additional Past Surgical History / Comment(s): Left Knee Arthroscopy, cataract surg. Past Anesthesia/Blood Transfusion Reactions: No Reported Reaction Date of Last Stent Placement:: 1997 Past Psychological History: No Psychological Hx Reported Smoking Status: Former smoker Past Alcohol Use History: Daily Additional Past Alcohol Use History / Comment(s): quit smoking 35 yrs ago, smoked for approx 15 yrs. BEER X1 DAILY AVG Past Drug Use History: None Reported - Past Family History Father Family Medical History: Deep Vein Thrombosis (DVT) Sister(s) Family Medical History: Deep Vein Thrombosis (DVT) Medications and Allergies Home Medications Medication Instructions Recorded Confirmed Type Aspirin [Adult Low Dose Aspirin EC] 81 mg PO HS 05/26/15 05/30/16 History Atenolol [Tenormin] 50 mg PO DAILY 05/26/15 05/30/16 History Simvastatin [Zocor] 20 mg PO HS 05/26/15 05/30/16 History Naproxen Sodium [Aleve] 220 mg PO BID PRN 08/21/15 05/30/16 History Warfarin Sodium [Warfarin Sodium] 2.5 mg PO DAILY 05/30/16 05/30/16 History Warfarin [Coumadin] 7.5 mg PO ONCE 05/30/16 05/30/16 History Allergies Allergy/AdvReac Type Severity Reaction Status Date / Time No Known Allergies Allergy Verified 05/24/16 10:46 Physical Exam Vitals: Vital Signs Temp Pulse Pulse Resp BP BP Pulse Ox 06/05/16 07:00 98.7 F 79 16 147/65 99 06/05/16 01:25 98.5 F 76 16 135/64 97 06/04/16 21:14 99.8 F H 77 16 131/62 100 06/04/16 17:48 99.1 F 79 16 136/60 06/04/16 17:18 100.4 F H 81 16 127/58 06/04/16 17:08 99.6 F 80 16 126/57 94 L 06/04/16 16:09 99.4 F 83 16 127/58 94 L 06/04/16 14:02 98.7 F 89 16 151/63 93 L 06/04/16 13:24 98.7 F 96 18 122/60 06/04/16 12:54 99.5 F 94 16 123/55 06/04/16 12:44 99.1 F 91 18 135/61 Intake and Output 06/04/16 06/05/16 06/05/16 22:59 06:59 14:59 Intake Total 620 Output Total 400 Balance 220 Intake: Blood Product 620 Rc As-1 Unit 310 [id number] Pheresis As-3 Unit 310 [id number] Output: Urine 400 Other: # Voids 1 General appearance: The patient is alert, oriented, in no acute distress. HET: Head is normocephalic and atraumatic. Pupils are equal and reactive. Oropharynx is clear without lesions. Neck: Supple without lymphadenopathy. Trachea midline. Heart: S1 S2. Regular rate and rhythm. Lungs: No crackles or wheezes are heard. Abdomen: Soft, nontender, nondistended with bowel sounds. No peritoneal signs. No palpable organomegaly or masses. Extremities: Left lower extremity with +1 edema diffuse ecchymosis from thigh to ankle. Left knee dressing clean dry and intact DP PT +2 pulses bilaterally palpable.. Neurological: No focal deficits. Strength and sensation are grossly intact. Results CBC & Chem 7: 06/05/16 08:32 06/05/16 08:32 Labs: Abnormal Lab Results - Last 24 Hours (Table) 06/04/16 06/04/16 06/04/16 Range/Units 08:20 08:20 21:24 RBC 2.13 L 2.78 L (4.30-5.90) m/uL Hgb 6.2 L* D 8.2 L D (13.0-17.5) gm/dL Hct 18.5 L* 23.7 L (39.0-53.0) % Neutrophils # 8.4 H (1.3-7.7) k/uL Lymphocytes # 0.7 L (1.0-4.8) k/uL Crossmatch See Detail Assessment and Plan (1) GI bleed Status: Acute (2) Melena Status: Acute (3) Status post total knee replacement, left Status: Acute (4) Acute blood loss anemia Status: Acute Plan: 1. Protonix 40 mg IV twice daily. 2. CBC monitoring. Check at 1800. 3. EGD evaluation scheduled 06/07/2015. 4. Nothing by mouth after midnight. The steel welder has discussed the risks, benefits and alternative therapies for the above-mentioned procedure and for both sedation/analgesia as well as necessary blood product administration, if indicated, as they pertain to this patient. The patient has indicated understanding and acceptance of the risks and procedures discussed. Thank you for this kind referral and the opportunity to participate in the care of your patient. This consultation was discussed with Dr. Peña. The impression and plan of care have been directed as dictated.
[2016-06-05 17:55] LABS: Basophils % (A) 0 %; CH 29.7; CHCM 34.5; Eosinophils # (A) 0.1 k/uL (0-0.7); Eosinophils % (A) 1 %; HCT 23.9 % (39.0-53.0); HDW 3.04; HGB 7.9 gm/dL (13.0-17.5); Luc # (Auto) 0.25; Luc % (Auto) 3; Lymphocytes # (A) 1.7 k/uL (1.0-4.8); Lymphocytes % (A) 18 %; MCH 28.8 pg (25.0-35.0); MCHC 33.1 g/dL (31.0-37.0); MCV 86.9 fL (80.0-100.0); Monocytes # (A) 0.8 k/uL (0-1.0); Monocytes % (A) 8 %; Neutrophils # (A) 6.6 k/uL (1.3-7.7); Neutrophils % (A) 70 %; RBC 2.75 m/uL (4.30-5.90); RDW 15.2 % (11.5-15.5); WBC 9.4 k/uL (3.8-10.6); WBC (Perox) 9.63
--- NOTE | 2016-06-05 18:03 | P.PN ---
Subjective Date of service 06/05/2016. Progress note being dictated for Dr. Dolan. Interval history: This a 76-year-old gentleman admitted with osteoarthritis, status post left knee arthroplasty. Yesterday hemoglobin 6.2, symptomatic, passing black stools. Received 2 units of packed RBCs, with current hemoglobin at 8.7. Continues to have black stools 2 this morning. Evaluated by a GI with recommendations noted. Nausea improving .Denies abdominal pain. Pain controlled.Ambulated with physical therapy today, tolerated exertion well Denies chest pain, palpitations or increasing shortness of breath. Objective - Vital Signs Vital signs: Vital Signs Temp 98.7 F 06/05/16 07:00 Pulse 79 06/05/16 07:00 Resp 16 06/05/16 07:00 BP 147/65 06/05/16 07:00 Pulse Ox 99 06/05/16 07:00 Intake & Output 06/04/16 06/05/16 06/05/16 18:59 06:59 18:59 Intake Total 1170 310 180 Output Total 1 400 Balance 1169 -90 180 Intake: IV 500 Sodium Chloride 0.9% 1, 500 000 ml @ 100 mls/hr IV . Q10H BLAYNE Rx#:[id number] Oral 360 180 Blood Product 310 310 Rc As-1 Unit 0 310 [id number] Rc Pheresis As-3 Unit 310 [id number] Output: Urine 400 Stool 1 Other: # Voids 1 - Exam PHYSICAL EXAM: VITAL SIGNS: As above [] GENERAL: [Sitting up in bed, tired appearing HEENT: [Pupils equal conjunctiva normal.] NECK: [Supple, no JVD] RESPIRATORY EFFORT:[Normal] LUNGS: [Clear, no wheezing crackles or rhonchi] CARDIOVASCULAR[regular S1 and S2, no murmurs rubs or gallops] GI: [Abdomen soft, nontender, positive bowel sounds. No guarding, no rigidity] PSYCH: [Alert and oriented -3, mood and affect normal.] NEURO: Gross neurological examination did not reveal any focal deficits - Labs CBC & Chem 7: 06/05/16 08:32 06/05/16 08:32 Labs: Abnormal Lab Results - Last 24 Hours (Table) 06/04/16 06/04/16 06/05/16 Range/Units 08:20 21:24 08:32 WBC 11.5 H (3.8-10.6) k/uL RBC 2.78 L 2.96 L (4.30-5.90) m/uL Hgb 8.2 L D 8.7 L (13.0-17.5) gm/dL Hct 23.7 L 26.6 L (39.0-53.0) % Neutrophils # 9.0 H (1.3-7.7) k/uL Crossmatch See Detail Assessment and Plan Plan: 1. [Osteoarthritis, status post left knee arthroplasty]. 2. [Leukocytosis, reactive, resolved. 3. [CAD. 4. [Hyperlipidemia]. 5. [Borderline hypotension]. 6. Acute blood loss anemia secondary to Acute upper GI bleed, transfused Plan: Continue on current medication regime ,PPI,monitoring and symptomatic treatment. Aspirin remains on hold. Close monitoring of CBC with repeat CBC at 1800. EGD tomorrow. Further recommendations to follow. Further recommendations to follow. The impression and plan of care has been dictated as directed. : I performed a H&P examination of this patient and discussed the same with the dictator. I agree with the dictator's note. Any additional findings/opinions/ etc. will be noted.
[2016-06-05] MEDS: SENNOSIDES-DOCUSATE SODIUM 1 EACH TAB PO SCH (21:37)
[2016-06-05] MEDS: ATORVASTATIN 10 MG TAB PO SCH (21:37)
[2016-06-05] MEDS: PANTOPRAZOLE 40 MG/10 ML VIAL IVP SCH (22:52)
[2016-06-06] MEDS: HYDROmorphone 1 MG/ML 1 ML SYRINGE IVP PRN ×2 (02:23→20:23)
[2016-06-06 07:07] LABS: Basophils % (A) 0 %; CH 29.1; CHCM 32.7; Eosinophils # (A) 0.1 k/uL (0-0.7); Eosinophils % (A) 2 %; HCT 23.5 % (39.0-53.0); HDW 2.94; Luc # (Auto) 0.22; Luc % (Auto) 3; Lymphocytes # (A) 1.3 k/uL (1.0-4.8); Lymphocytes % (A) 18 %; MCH 30.3 pg (25.0-35.0); MCHC 33.9 g/dL (31.0-37.0); MCV 89.4 fL (80.0-100.0); Mean Platelet Volume 6.8; Monocytes # (A) 0.7 k/uL (0-1.0); Monocytes % (A) 9 %; Neutrophils # (A) 5.1 k/uL (1.3-7.7); Neutrophils % (A) 69 %; RBC 2.63 m/uL (4.30-5.90); RDW 15.2 % (11.5-15.5); WBC 7.4 k/uL (3.8-10.6); WBC (Perox) 7.78
[2016-06-06] MEDS: PANTOPRAZOLE 40 MG/10 ML VIAL IVP SCH ×2 (07:48→21:32)
--- NOTE | 2016-06-06 08:05 | P.PN ---
Subjective Principal diagnosis: Status post left total knee arthroplasty This is a 76 year-old male post left total knee arthroplasty. This is post-op day 7. The patient was evaluated at the bedside today. The patient denies nausea, vomiting, abdominal pain, shortness of breath, and chest pain this morning. He states his pain is controlled at this time. The patient is still feeling dizzy and lightheaded today. His hemoglobin is 8.0 today. The patient is scheduled for a EGD today by Dr. Peña at noon. Objective - Vital Signs Vital signs: Vital Signs Temp 98.2 F 06/05/16 23:00 Pulse 76 06/05/16 23:00 Resp 16 06/05/16 23:00 BP 134/63 06/05/16 23:00 Pulse Ox 97 06/05/16 23:00 Intake & Output 06/05/16 06/06/16 06/06/16 18:59 06:59 18:59 Intake Total 180 590 Output Total 400 Balance 180 190 Intake: Oral 180 590 Output: Urine 400 Other: Voiding Method Urinal # Voids 2 1 - Exam The patient does not appear in acute distress. Alert and orientated x3. The patient's abdomen is soft and non-tender. Dressing is clean dry and intact. Incision appears fine with no erythema or active drainage. Calf is soft and nontender. Good foot and ankle motion without difficulty. There is bruising to the posterior aspect of the leg and swelling in the lower leg. Sensation and circulatory status is intact. - Labs CBC & Chem 7: 06/06/16 06:41 06/05/16 08:32 Labs: Abnormal Lab Results - Last 24 Hours (Table) 06/05/16 06/05/16 06/05/16 Range/Units 08:32 08:32 17:39 WBC 11.5 H (3.8-10.6) k/uL RBC 2.96 L 2.75 L (4.30-5.90) m/uL Hgb 8.7 L 7.9 L (13.0-17.5) gm/dL Hct 26.6 L 23.9 L (39.0-53.0) % Neutrophils # 9.0 H (1.3-7.7) k/uL BUN 30 H (9-20) mg/dL Glucose 154 H (74-99) mg/dL 06/06/16 Range/Units 06:41 WBC (3.8-10.6) k/uL RBC 2.63 L (4.30-5.90) m/uL Hgb 8.0 L (13.0-17.5) gm/dL Hct 23.5 L (39.0-53.0) % Neutrophils # (1.3-7.7) k/uL BUN (9-20) mg/dL Glucose (74-99) mg/dL Assessment and Plan (1) Status post total knee replacement, left Status: Acute (2) Primary localized osteoarthritis of left knee Status: Acute Plan: 1. Continue pain control 2. Anticoagulation with Aspirin 3. Await GI recommendations after EGD 4. Continue physical therapy and ambulation 5. Anticipate discharge to skilled rehab when stable
--- NOTE | 2016-06-06 09:19 | P.PN ---
Subjective Date of service 06/06/2016. Progress note being dictated for Dr. Dolan. Interval history: This a 76-year-old gentleman admitted with osteoarthritis, status post left knee arthroplasty. NPO, scheduled for EGD today.hemoglobin currently 8 .No black stools since yesterday morning. Denies abdominal pain. States dates was unable to eat lunch and dinner yesterday, r/t nausea.negative for orthostatic hypotension. Ambulating in hallway with physical therapy, tolerating increase in exertion well. Pain controlled. Denies any lightheadedness dizziness or shortness of breath. Denies any chest pain, palpitations. Objective - Vital Signs Vital signs: Vital Signs Temp 98.6 F 06/06/16 07:00 Pulse 80 06/06/16 07:00 Resp 16 06/06/16 07:00 BP 150/74 06/06/16 07:00 Pulse Ox 99 06/06/16 07:00 Intake & Output 06/05/16 06/06/16 06/06/16 18:59 06:59 18:59 Intake Total 180 590 Output Total 400 Balance 180 190 Intake: Oral 180 590 Output: Urine 400 Other: Voiding Method Urinal # Voids 2 1 - Exam PHYSICAL EXAM: VITAL SIGNS: As above GENERAL: [Sitting up at side of bed, no acute distress HEENT: [Pupils equal conjunctiva normal.] NECK: [Supple, no JVD] RESPIRATORY EFFORT:[Normal] LUNGS: [Clear, no wheezing crackles or rhonchi] CARDIOVASCULAR[regular S1 and S2, no murmurs rubs or gallops] GI: [Abdomen soft, nontender, positive bowel sounds. No guarding, no rigidity] PSYCH: [Alert and oriented -3, mood and affect normal.] NEURO: Gross neurological examination did not reveal any focal deficits - Labs CBC & Chem 7: 06/06/16 06:41 06/05/16 08:32 Labs: Abnormal Lab Results - Last 24 Hours (Table) 06/05/16 06/05/16 06/06/16 Range/Units 08:32 17:39 06:41 RBC 2.75 L 2.63 L (4.30-5.90) m/uL Hgb 7.9 L 8.0 L (13.0-17.5) gm/dL Hct 23.9 L 23.5 L (39.0-53.0) % BUN 30 H (9-20) mg/dL Glucose 154 H (74-99) mg/dL Assessment and Plan Plan: 1. [Osteoarthritis, status post left knee arthroplasty]. 2. [Leukocytosis, reactive, resolved. 3. [CAD. 4. [Hyperlipidemia]. 5. [Borderline hypotension, resolved]. 6. Acute blood loss anemia secondary to Acute upper GI bleed, transfused. Plan: Continue on current medication regime ,PPI,monitoring and symptomatic treatment. Aspirin remains on hold. EGD today, pending. Close monitoring of CBC. Further recommendations to follow. Further recommendations to follow. The impression and plan of care has been dictated as directed. : I performed a H&P examination of this patient and discussed the same with the dictator. I agree with the dictator's note. Any additional findings/opinions/ etc. will be noted.
[2016-06-06] MEDS: MULTIVITAMINS, THERA 1 EACH TAB PO SCH (11:38)
[2016-06-06] MEDS: DOCUSATE 100 MG CAP PO SCH ×2 (11:38→21:32)
[2016-06-06] MEDS ORDERED: LIDOCAINE 1% INJ 10MG/ML (20 ML MDV) ONE (16:48)
[2016-06-06] MEDS ORDERED: PROPOFOL 10 MG/ML 20 ML VIAL IV ONE (16:48)
[2016-06-06] MEDS ORDERED: IV FLUID CONTINUATION 1,000 ML IV ONE (16:50)
--- NOTE | 2016-06-06 18:17 | P.PCN ---
Date of Procedure: 06/06/16 Procedure(s) Performed: Procedure: Esophagogastroduodenoscopy and biopsy. Preoperative diagnosis: GI bleeding. Postoperative diagnosis: 1. Sliding hiatal hernia with no obvious esophagitis or bleeding. 2. 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 3. Prepyloric ulcers covered with white exudate likely cause of bleeding, biopsy obtained to rule out H. pylori infection. 4. Duodenitis with multiple erosions in the duodenal bulb with no active bleeding. Preparation sedation: Was provided by anesthesia. Brief clinical history: The patient is a 76-year-old male with history of OA for which he was taking Aleve. He was admitted and had left total knee arthroplasty 05/30/2016. Other past medical history includes CAD, hyperlipidemia , hypertension, [place]. Patient received 3 doses of Coumadin the night prior to surgery for presurgical prophylaxis of DVT. He has been maintained on postoperative full strength aspirin twice daily. 2 days ago patient had a black -colored bowel movement and another one this morning. Yesterday hemoglobin dropped to 6.2. Admission hemoglobin 12.8. MCV 86. BUN 48. Creatinine 0.9. Hemoccult stool positive. Platelet 276. Received 2 units of blood current hemoglobin 8.2. We were asked to see him regarding his GI bleeding and anemia. The details are summarized in the history and physical and dictated consultation. Procedure: With the patient on his left lateral decubitus position and after informed consent and adequate sedation, I passed the Olympus-GIF 160 video upper endoscope through the cricopharyngeus down the esophagus. The esophagus did not show any erosions or ulcers or any mucosal tears or bleeding. There was a sliding hiatal hernia and a nonobstructing stricture at the level of the GE junction consistent with benign peptic stricture. The endoscope was then passed into the stomach which was insufflated with air and inspected in detail including the retroflex view in the cardia. There was 2 prepyloric ulcers noted , one measuring 1 cm and the other around 1.5 cm covered with white exudate not actively bleeding. The surrounding mucosa showed minimal mottling and erythema. Pyloric channel did not show any ulcers. Duodenal bulb showed edema and erythema and there were multiple scattered erosions but no ulcers or active bleeding. Post bulbar area and descending duodenum appeared within normal limits. I obtained biopsies from the antrum then the endoscope was withdrawn. The patient tolerated the procedure well. Plan: The patient was reassured and I called his at home and summarized to her these findings. He is already on Protonix which would be continued. Will allow diet and continue to monitor his blood count. I anticipate he will need to be on PPI for the foreseeable future, especially, if he has to be on NSAIDs for his osteoarthritis until his next knee surgery.
[2016-06-06] MEDS: ATORVASTATIN 10 MG TAB PO SCH (21:32)
[2016-06-06] MEDS: SENNOSIDES-DOCUSATE SODIUM 1 EACH TAB PO SCH (21:32)
[2016-06-07] MEDS: DOCUSATE 100 MG CAP PO SCH ×2 (07:24→21:53)
[2016-06-07] MEDS: ASPIRIN 325 MG TAB PO SCH ×2 (07:24→21:52)
[2016-06-07] MEDS: PANTOPRAZOLE 40 MG/10 ML VIAL IVP SCH ×2 (07:24→21:53)
[2016-06-07 07:45] LABS: Basophils # (A) 0.1 k/uL (0-0.2); Basophils % (A) 0 %; CH 29.2; CHCM 32.2; Eosinophils # (A) 0.1 k/uL (0-0.7); Eosinophils % (A) 0 %; HCT 27.8 % (39.0-53.0); HDW 2.98; HGB 9.2 gm/dL (13.0-17.5); Hypochromasia Slight; Luc % (Auto) 2; Lymphocytes # (A) 1.4 k/uL (1.0-4.8); Lymphocytes % (A) 8 %; MCH 30.3 pg (25.0-35.0); MCHC 33.1 g/dL (31.0-37.0); MCV 91.4 fL (80.0-100.0); Mean Platelet Volume 6.6; Monocytes # (A) 0.7 k/uL (0-1.0); Monocytes % (A) 4 %; Neutrophils # (A) 15.5 k/uL (1.3-7.7); Neutrophils % (A) 86 %; RBC 3.04 m/uL (4.30-5.90); RDW 15.9 % (11.5-15.5)
--- NOTE | 2016-06-07 09:16 | XR ---
EXAMINATION TYPE: XR chest 2V DATE OF EXAM: 06/07/2016 9:09 AM HISTORY: fever,R/O infiltrates. REFERENCE: Previous study dated 06/05/2016. FINDINGS: Lung volumes are mildly prominent. There is some mild peribronchial cuffing. There is no pn eumonia or edema. Heart size is normal. IMPRESSION: FINDINGS CONSISTENT WITH BUT NOT DIAGNOSTIC OF BRONCHITIS.
--- NOTE | 2016-06-07 10:00 | P.PN ---
Subjective Principal diagnosis: GI bleed s/p EGD evaluation for melena/GI bleed; early distal esophageal stricture with prepyloric ulcerations. HGB 9.2. Feels well. Denies epigastric pain. No melena. Anticipating DC today. Objective - Vital Signs Vital signs: Vital Signs Temp 97.7 F 06/07/16 07:00 Pulse 88 06/07/16 07:00 Resp 15 06/07/16 07:00 BP 155/84 06/07/16 07:00 Pulse Ox 95 06/07/16 07:00 Intake & Output 06/06/16 06/07/16 06/07/16 18:59 06:59 18:59 Intake Total 100 710 Output Total 3 Balance 100 707 Weight 90.718 kg 90.718 kg Intake: IV 100 Oral 710 Output: Stool 3 Other: Voiding Method Urinal Toilet # Voids 3 2 # Bowel Movements 1 - Constitutional General appearance: Present: average body habitus, no acute distress - EENT Eyes: Present: normal appearance - Respiratory Respiratory: bilateral: CTA - Cardiovascular Rhythm: regular Heart sounds: normal: S1, S2 - Gastrointestinal General gastrointestinal: Present: soft - Psychiatric Psychiatric: Present: A&O x's 3, intact judgment & insight - Labs CBC & Chem 7: 06/07/16 07:13 06/05/16 08:32 Labs: Abnormal Lab Results - Last 24 Hours (Table) 06/07/16 Range/Units 07:13 WBC 18.0 H (3.8-10.6) k/uL RBC 3.04 L (4.30-5.90) m/uL Hgb 9.2 L (13.0-17.5) gm/dL Hct 27.8 L (39.0-53.0) % RDW 15.9 H (11.5-15.5) % Neutrophils # 15.5 H (1.3-7.7) k/uL Assessment and Plan (1) GI bleed Narrative/Plan: s/p EGD preplyloric nonbleeding ulcerations early distal esophageal stricture Status: Acute (2) Melena Status: Acute (3) Status post total knee replacement, left Status: Acute (4) Acute blood loss anemia Status: Acute (5) GERD (gastroesophageal reflux disease) Status: Acute Plan: 1. Omeprazole 40 mg daily. Script provided. 2. CBC 1 week. 3. RTO 2 weeks. 4. Regular diet. May continue ASA regimen for post knee prophylaxis as long as on PPI. Avoid NSAIDS if possible. Assessment and plan of care discussed with Dr. Peña.
[2016-06-07 12:24] LABS: Appearance,Urine Clear (Clear); Bilirubin,Urine Negative (Negative); Glucose,Urine (UA) Negative (Negative); Ketones,Urine Negative (Negative); Leukocyte Esterase,Urine Negative (Negative); Nitrite,Urine Negative (Negative); Protein,Urine Negative (Negative); Specific Gravity,Urine 1.009 (1.001-1.035); UA Billing (MACRO vs. MICRO) CHEM
[2016-06-07] MEDS ORDERED: CALCIUM CARBONATE 500 MG CHEWABLE PO PRN (15:38)
--- NOTE | 2016-06-07 16:32 | P.PN ---
Subjective Principal diagnosis: Status post left total knee arthroplasty This is a 76 year-old male post left total knee arthroplasty. This is post-op day 8. The patient was evaluated at the bedside today. The patient denies nausea, vomiting, abdominal pain, shortness of breath, and chest pain this morning. He states his pain is controlled at this time. He had an EGD yesterday that revealed two small ulcers. The patient states he is feeling better this morning. He states he had a fever last night but this morning his temperature was normal. Objective - Vital Signs Vital signs: Vital Signs Temp 97.7 F 06/07/16 07:00 Pulse 88 06/07/16 07:00 Resp 15 06/07/16 07:00 BP 155/84 06/07/16 07:00 Pulse Ox 95 06/07/16 07:00 Intake & Output 06/06/16 06/07/16 06/07/16 18:59 06:59 18:59 Intake Total 100 710 480 Output Total 3 Balance 100 707 480 Weight 90.718 kg 90.718 kg Intake: IV 100 Oral 710 480 Output: Stool 3 Other: Voiding Method Urinal Toilet # Voids 3 2 2 # Bowel Movements 1 - Exam The patient does not appear in acute distress. Alert and orientated x3. The patient's abdomen is soft and non-tender. Dressing is clean dry and intact. Incision appears fine with no erythema or active drainage. Calf is soft and nontender. Good foot and ankle motion without difficulty. There is bruising to the posterior aspect of the leg and swelling in the lower leg. Sensation and circulatory status is intact. - Labs CBC & Chem 7: 06/07/16 07:13 06/05/16 08:32 Labs: Abnormal Lab Results - Last 24 Hours (Table) 06/07/16 Range/Units 07:13 WBC 18.0 H (3.8-10.6) k/uL RBC 3.04 L (4.30-5.90) m/uL Hgb 9.2 L (13.0-17.5) gm/dL Hct 27.8 L (39.0-53.0) % RDW 15.9 H (11.5-15.5) % Neutrophils # 15.5 H (1.3-7.7) k/uL Assessment and Plan (1) Status post total knee replacement, left Status: Acute (2) Primary localized osteoarthritis of left knee Status: Acute Plan: 1. Continue pain control 2. Anticoagulation with Aspirin 3. Continue Prilosec per GI 4. Continue physical therapy and ambulation 5. Will follow with medicine regarding fever 6. Anticipate discharge to home tomorrow
[2016-06-07] MEDS: MULTIVITAMINS, THERA 1 EACH TAB PO SCH (18:09)
--- NOTE | 2016-06-07 18:59 | P.PN ---
Subjective Date of service 06/07/2016. Progress note being dictated for Dr. Dolan. Interval history: This a 76-year-old gentleman admitted with osteoarthritis, status post left knee arthroplasty. Underwent EGD yesterday reporting early distal esophageal stricture with prepyloric ulcerations. Tolerated procedure well. No melena. Hemoglobin stable at 9.2. Nausea improving. Denies abdominal pain. Febrile during the night, T-max 101.7 .Ambulating in hallway with physical therapy, tolerating increase in exertion well. Pain controlled. Denies any lightheadedness dizziness or shortness of breath. Denies any chest pain, palpitations. Objective - Vital Signs Vital signs: Vital Signs Temp 97.7 F 06/07/16 07:00 Pulse 88 06/07/16 07:00 Resp 15 06/07/16 07:00 BP 155/84 06/07/16 07:00 Pulse Ox 95 06/07/16 07:00 Intake & Output 06/06/16 06/07/16 06/07/16 18:59 06:59 18:59 Intake Total 100 710 Output Total 3 Balance 100 707 Weight 90.718 kg 90.718 kg Intake: IV 100 Oral 710 Output: Stool 3 Other: Voiding Method Urinal Toilet # Voids 3 2 # Bowel Movements 1 - Exam PHYSICAL EXAM: VITAL SIGNS: As above GENERAL: [Sitting up at side of bed, no acute distress HEENT: [Pupils equal conjunctiva normal.] NECK: [Supple, no JVD] RESPIRATORY EFFORT:[Normal] LUNGS: [Clear, fine left basilar crackles, no wheezing or rhonchi] CARDIOVASCULAR[regular S1 and S2, no murmurs rubs or gallops] GI: [Abdomen soft, nontender, positive bowel sounds. No guarding, no rigidity] PSYCH: [Alert and oriented -3, mood and affect normal.] NEURO: Gross neurological examination did not reveal any focal deficits - Labs CBC & Chem 7: 06/07/16 07:13 06/05/16 08:32 Labs: Abnormal Lab Results - Last 24 Hours (Table) 06/07/16 Range/Units 07:13 WBC 18.0 H (3.8-10.6) k/uL RBC 3.04 L (4.30-5.90) m/uL Hgb 9.2 L (13.0-17.5) gm/dL Hct 27.8 L (39.0-53.0) % RDW 15.9 H (11.5-15.5) % Neutrophils # 15.5 H (1.3-7.7) k/uL Assessment and Plan Plan: 1. [Osteoarthritis, status post left knee arthroplasty]. 2. [Leukocytosis, reactive, resolved. 3. [CAD. 4. [Hyperlipidemia]. 5. [Borderline hypotension, resolved]. 6. Acute blood loss anemia secondary to Acute upper GI bleed, transfused. Status post EGD reporting early distal esophageal stricture with prepyloric ulcerations. 7. Gastroesophageal reflux disease Plan: Continue on current medication regime ,PPI,monitoring and symptomatic treatment. Pancultured regarding fever, workup pending .Close monitoring of CBC. Further recommendations to follow. Further recommendations to follow. The impression and plan of care has been dictated as directed. : I performed a H&P examination of this patient and discussed the same with the dictator. I agree with the dictator's note. Any additional findings/opinions/ etc. will be noted.
[2016-06-07] MEDS: ATORVASTATIN 10 MG TAB PO SCH (21:52)
[2016-06-07] MEDS: SENNOSIDES-DOCUSATE SODIUM 1 EACH TAB PO SCH (21:53)
[2016-06-08 07:13] LABS: CH 28.3; CHCM 28.5; HCT 27.6 % (39.0-53.0); HDW 2.82; HGB 8.4 gm/dL (13.0-17.5); Hypochromasia Marked; MCH 30.2 pg (25.0-35.0); MCHC 30.3 g/dL (31.0-37.0); Macrocytosis Slight; Mean Platelet Volume 8.3; RBC 2.76 m/uL (4.30-5.90); RDW 15.3 % (11.5-15.5); WBC 9.8 k/uL (3.8-10.6)
[2016-06-08 07:20] LABS: MCV 99.8 fL (80.0-100.0)
[2016-06-08 07:24] LABS: Anion Gap 11 mmol/L; Blood Urea Nitrogen 15 mg/dL (9-20); Calcium 8.5 mg/dL (8.4-10.2); Carbon Dioxide 21 mmol/L (22-30); Chloride 104 mmol/L (98-107); Glucose 99 mg/dL (74-99); Non-African American GFR(MDRD) >60 (>60 ml/min/1.73 sqM); Sodium 136 mmol/L (137-145)
[2016-06-08 07:35] VITALS: RESP 16
[2016-06-08 07:35] LABS: Potassium 4.5 mmol/L (3.5-5.1)
[2016-06-08] MEDS: PANTOPRAZOLE 40 MG/10 ML VIAL IVP SCH (09:10)
[2016-06-08] MEDS: MULTIVITAMINS, THERA 1 EACH TAB PO SCH (09:11)
[2016-06-08] MEDS: ASPIRIN 325 MG TAB PO SCH (09:11)
[2016-06-08] MEDS: DOCUSATE 100 MG CAP PO SCH (09:11)
[2016-06-08] MEDS ORDERED: PANTOPRAZOLE 40 MG TABLET PO SCH (09:30)
--- NOTE | 2016-06-08 11:52 | P.DS ---
Providers Date of admission: 05/30/16 09:02 Expected date of discharge: 06/08/16 Attending physician: Lan Peraza Consults: 05/30/16 13:26 Consult Physician Routine Consulting Provider: Alen Anderson Consult Reason/Comments: post op medical management Do you want consulting provider notified?: Yes Primary care physician: Stated None - Discharge Diagnosis(es) (1) Acute blood loss anemia Current Visit: Yes Status: Acute (2) GERD (gastroesophageal reflux disease) Current Visit: Yes Status: Acute (3) GI bleed Current Visit: Yes Status: Acute (4) Primary localized osteoarthritis of left knee Current Visit: Yes Status: Acute (5) Status post total knee replacement, left Current Visit: Yes Status: Acute Priority: Medium Hospital Course: This is a pleasant 76-year-old gentleman who has known history of degenerative arthritis of the left knee. After discussion consideration the patient elected to proceed with left total knee arthroplasty. Patient was seen preoperatively medically cleared for surgery by his primary care physician. Patient was admitted to [facility] on 05/30/2016. He underwent left total knee arthroplasty with Dr. Peraza. The procedure was performed without competitions or sequelae. Postoperatively the patient did have postoperative blood loss anemia and evidence of upper GI bleed. He underwent EGD with Dr. Peña. He was noted to have 2 small ulcers. He is doing much better at this time. He wishes to be discharged home. He was seen and evaluated at bedside by Dr. Lan Peraza earlier this morning as well. He is not appear to be in acute distress. Dressing is clean dry and intact. Incision appears fine with no erythema or active drainage. Calf is soft and nontender. He has good foot and ankle motion without difficulty. Sensation and circulatory status is intact. The patient is orthopedically stable for discharge once he's been cleared by all consulting physicians. Pertinent Studies: Selected Entries 06/07/16 06/08/16 06/08/16 23:00 04:00 07:00 Temperature 97.6 F Pulse Rate [ 86 Bilateral Dorsalis Pedis] Pulse Rate [ 75 Pulse Oximetery ] Respiratory 16 Rate Blood Pressure 117/58 140/67 [Right Arm Standing] Laboratory Tests 06/08/16 06:14 WBC 9.8 RBC 2.76 L Hgb 8.4 L Hct 27.6 L MCV 99.8 D MCH 30.2 MCHC 30.3 L RDW 15.3 Plt Count 198 Patient Condition at Discharge: Stable Plan - Discharge Summary New Discharge Prescriptions: Aspirin 325 mg PO BID #60 tab HYDROcodone/APAP 7.5-325MG [Whitt 7.5-325] 1 - 2 each PO Q6HR PRN #90 tab PRN Reason: Pain Omeprazole [PriLOSEC] 40 mg PO DAILY #30 capsule.dr Discharge Medication List Aspirin [Adult Low Dose Aspirin EC] 81 mg PO HS 05/26/15 [History] Atenolol [Tenormin] 50 mg PO DAILY 05/26/15 [History] Simvastatin [Zocor] 20 mg PO HS 05/26/15 [History] Naproxen Sodium [Aleve] 220 mg PO BID PRN 08/21/15 [History] Warfarin Sodium [Warfarin Sodium] 2.5 mg PO DAILY 05/30/16 [History] Warfarin [Coumadin] 7.5 mg PO ONCE 05/30/16 [History] HYDROcodone/APAP 7.5-325MG [Whitt 7.5-325] 1 - 2 each PO Q6HR PRN #90 tab [Rx] Aspirin 325 mg PO BID #60 tab 06/01/16 [Rx] Omeprazole [PriLOSEC] 40 mg PO DAILY #30 capsule. 06/07/16 [Rx] Follow up Appointment(s)/Referral(s): Rodney Peña MD [STAFF PHYSICIAN] - 2 Weeks [facility], [NON-STAFF] - 1 Week Lan Peraza MD [STAFF PHYSICIAN] - 06/13/16 9:30 am Ambulatory/Diagnostic Orders: Complete Blood Count w/diff [LAB.AMB] Time Frame: 1 Week, Location: Determined By Patient Activity/Diet/Wound Care/Special Instructions: Weight-bear as tolerated with a walker Take meds as directed Keep wound clean and dry May shower in 72 hours post-op Follow-up with Dr. Peraza in office [phone]. Call with any questions or concerns Discharge Disposition: HOME WITH HOME HEALTH SERVICES
[2016-06-08 15:20] VITALS: BP 149/73; PULSE 92; TEMP 98.3
--- NOTE | 2016-06-08 19:20 | PN ---
DATE OF SERVICE: 06/08/2016 is a 76-year-old gentleman with past medical history of coronary artery disease and hyperlipidemia, admitted to the hospital for left knee arthroplasty. Postop, the patient developed GI bleed for which he underwent EGD and an EGD was showing prepyloric ulceration. The patient has been discontinued off of Coumadin. Patient's hemoglobin has been stable around 8 to 9. Patient did spike a fever yesterday along with a white count of 18, and so work up for infections was initiated yesterday, but the patient's white count has dropped to 9.8 today and he did not spike any more fevers. The patient did tolerate his breakfast this morning without any nausea or abdominal pain. He had a small bowel movement this morning which was brown in color. No evidence of active bleeding. He has been cleared by Dr. Casey YEAGER to be discharged home on Omeprazole. Patient's hemoglobin is 8.4, with no evidence of active bleeding today. REVIEW OF SYSTEMS: CONSTITUTIONAL: Denies having any fevers, chills, or rigors. RESPIRATORY: No cough. No difficulty in breathing. CARDIAC: No chest pain. No palpitations. GI: The patient denies having any abdominal pain, nausea or vomiting. He had a small bowel movement this morning which is brown in color with no evidence of active bleeding. On examination, patient's vitals: Temperature 98.3, heart rate 92, restricted 16, blood pressure 114/73, saturating at 99% on room air. GENERAL EXAMINATION: Patient appears to be no acute distress, lying comfortably in the bed with his by the bedside. EYES: Mild pallor. No icterus. NECK: No JVD. No thyromegaly. CARDIOVASCULAR: S1, S2 heard. LUNGS: Bilateral breath sounds are positive. No other crackles. GI: Abdomen is soft, nontender. Bowel sounds are positive. EXTREMITIES: No edema. No cyanosis. The left knee has an ice pack on it. There is some evidence of resolving bruises seen in the left lower extremities. No evidence of any swelling, cyanosis, peripheral pulses are felt. CENTRAL NERVOUS SYSTEM: Alert, awake, oriented x3. No focal neurological deficits. PSYCHIATRIC: Appropriate mood and affect. Patient's labs: White count of 9.8, hemoglobin is 8.4, platelets 98, sodium 136, potassium 4.5, chloride 104, bicarb 21, BUN 15, creatinine 0.87. ASSESSMENT AND PLAN: 1. Osteoarthritis status post left knee arthroplasty. 2. Leukocytosis most likely reactive that has resolved. 3. Coronary artery disease. 4. Hypertension. 5. Hyperlipidemia. 6. Acute blood loss anemia due to upper GI bleed, status post 2 units of PRBCs. 7. Gastroesophageal reflux disease. PLAN: The patient was to be discharged home on a PPI. His hemoglobin is stable around 8.4. No evidence of active bleeding. He has been cleared by Dr. Casey YEAGER. For anticoagulation he cannot be on Coumadin due to acute gastrointestinal bleed so it hid was decided. He will be discharged on aspirin 325 mg p.o. b.i.d. As his blood pressure has been trending up he is advised to continue taking atenolol and Lisinopril. He is advised to follow up with his PCP in 2 to 3 days and also checked his blood pressure at home. He was also explained if he notices any swelling of his lower extremity that he needs to seek medical attention. Discharge medications and plan was discussed in detail with the patient and the at the bedside. COLIN
== END 2016-06-08 16:18 | disposition home health service (06) | DRG 469 ==
LOC: 2ORMAIN 09:02 → 3SUR 13:24
PROVIDERS: ADMIT Orthopaedic Surgery Sports Medicine; ATTEND Orthopaedic Surgery Sports Medicine
PROC: 0SRD0J9 Replacement of Left Knee Joint with Synthetic Substitute, Cemented, Open Approach (ICD-10-PCS; 2016-05-30)
PROC: 30233N1 Transfusion of Nonautologous Red Blood Cells into Peripheral Vein, Percutaneous Approach (ICD-10-PCS; 2016-06-04)
PROC: 0DB68ZX Excision of Stomach, Via Natural or Artificial Opening Endoscopic, Diagnostic (ICD-10-PCS; principal; 2016-06-06 14:10)
DX: M17.0 Bilateral primary osteoarthritis of knee (principal); K25.4 Chronic or unspecified gastric ulcer with hemorrhage; D62 Acute posthemorrhagic anemia; K22.2 Esophageal obstruction; K44.9 Diaphragmatic hernia without obstruction or gangrene; I10 Essential (primary) hypertension; K29.80 Duodenitis without bleeding; K21.9 Gastro-esophageal reflux disease without esophagitis; E78.5 Hyperlipidemia, unspecified; I25.10 Atherosclerotic heart disease of native coronary artery without angina pectoris; Z95.5 Presence of coronary angioplasty implant and graft; Z79.82 Long term (current) use of aspirin; Z79.899 Other long term (current) drug therapy; Z87.891 Personal history of nicotine dependence; I25.2 Old myocardial infarction
CPT/HCPCS: 43239; 71020; 80048; 81003; 82272; 83735; 85025; 85027; 85610; 86850; 86900; 86901; 86920; 87040; 87086; 88300; 88305; 88342

== ENCOUNTER → 2016-06-14 | Outpatient (CLI) | payer MEDICARE ==
[2016-06-14 14:35] LABS: Basophils # (A) 0.1 k/uL (0-0.2); Basophils % (A) 1 %; CH 28.7; CHCM 30.8; Eosinophils # (A) 0.2 k/uL (0-0.7); Eosinophils % (A) 2 %; HCT 32.9 % (39.0-53.0); HDW 3.33; Hypochromasia Marked; Luc # (Auto) 0.21; Luc % (Auto) 2; Lymphocytes # (A) 1.5 k/uL (1.0-4.8); Lymphocytes % (A) 14 %; MCH 28.5 pg (25.0-35.0); MCHC 30.4 g/dL (31.0-37.0); Mean Platelet Volume 6.4; Monocytes # (A) 0.5 k/uL (0-1.0); Monocytes % (A) 4 %; Neutrophils # (A) 8.6 k/uL (1.3-7.7); Neutrophils % (A) 78 %; RBC 3.51 m/uL (4.30-5.90); RDW 14.7 % (11.5-15.5); WBC (Perox) 11.99
[2016-06-14 14:55] LABS: MCV 93.8 fL (80.0-100.0)
== END | disposition home or self-care (01) ==
LOC: LABWHC1 13:40
PROVIDERS: ATTEND Nurse Practitioner
DX: D64.9 Anemia, unspecified (principal)
CPT/HCPCS: 36415; 85025

== ENCOUNTER → 2016-10-17 | Outpatient (CLI) | payer MEDICARE ==
[2016-10-17 17:19] LABS: Anisocytosis Slight; CH 24.4; CHCM 30.6; HCT 40.1 % (39.0-53.0); HDW 2.39; HGB 12.9 gm/dL (13.0-17.5); Hypochromasia Slight; MCH 25.7 pg (25.0-35.0); MCHC 32.1 g/dL (31.0-37.0); MCV 80.2 fL (80.0-100.0); Mean Platelet Volume 6.3; RDW 16.7 % (11.5-15.5); WBC 9.8 k/uL (3.8-10.6)
[2016-10-17 17:22] LABS: Anion Gap 9 mmol/L; Blood Urea Nitrogen 17 mg/dL (9-20); Carbon Dioxide 25 mmol/L (22-30); Chloride 105 mmol/L (98-107); Non-African American GFR(MDRD) >60 (>60 ml/min/1.73 sqM); Sodium 139 mmol/L (137-145)
== END | disposition home or self-care (01) ==
LOC: LABPAT 16:34
PROVIDERS: ATTEND Internal Medicine Cardiovascular Disease
DX: Z01.812 Encounter for preprocedural laboratory examination (principal); I25.10 Atherosclerotic heart disease of native coronary artery without angina pectoris
CPT/HCPCS: 80051; 82565; 84520; 85027

== ENCOUNTER 2016-10-22 10:00 | Day surgery (SDC) | payer MEDICARE ==
[2016-10-18 09:15] VITALS: BMI 27.8
[2016-10-22] MEDS ORDERED: SODIUM CHLORIDE 0.9% 1,000 ML IV ONE (10:30)
[2016-10-22] MEDS ORDERED: fentaNYL (PF) 50 MCG/ML 2 ML AMP ONE (10:59)
[2016-10-22] MEDS ORDERED: MIDAZOLAM 2 MG/2 ML VIAL ONE (10:59)
[2016-10-22] MEDS ORDERED: HEPARIN SODIUM 1,000 UN/ML (10ML VL) ONE (10:59)
[2016-10-22] MEDS ORDERED: VERAPAMIL 2.5 MG/ML 2 ML AMP ONE (10:59)
[2016-10-22] MEDS ORDERED: fentaNYL (PF) 50 MCG/ML 2 ML AMP IV ONE (11:25)
[2016-10-22] MEDS ORDERED: MIDAZOLAM 2 MG/2 ML VIAL IV ONE (11:27)
[2016-10-22] MEDS: LIDOCAINE 2% INJ 20 MG/ML SQ ONE ×2 (11:28→12:04)
[2016-10-22] MEDS ORDERED: LIDOCAINE 1% INJ 10MG/ML (10 ML MDV) SQ ONE (11:28)
[2016-10-22] MEDS ORDERED: HEPARIN SODIUM 1,000 UN/ML (10ML VL) IV ONE (11:35)
[2016-10-22] MEDS: VERAPAMIL SYRINGE (5 MG/10 ML) INTRAARTER ONE ×2 (11:35→11:52)
[2016-10-22] MEDS ORDERED: LIDOCAINE 2% INJ 20 MG/ML SQ ONE (12:02)
[2016-10-22] MEDS ORDERED: HYDROmorphone 2 MG/ML 1 ML SYRINGE ONE (12:06)
[2016-10-22] MEDS ORDERED: HYDROmorphone 2 MG/ML 1 ML SYRINGE IV ONE (12:07)
[2016-10-22] MEDS ORDERED: BIVALIRUDIN 250 MG in SODIUM CHLORIDE 0.9% 50 ML IV ONE (13:07)
[2016-10-22] MEDS ORDERED: BIVALIRUDIN BOLUS 250 MG/50 ML IV ONE (13:07)
[2016-10-22] MEDS: NITROGLYCERIN 1000MCG/10ML SYRINGE INTRAARTER ONE ×2 (13:16→13:20)
[2016-10-22] MEDS ORDERED: CLOPIDOGREL 75 MG TAB ONE (13:22)
[2016-10-22] MEDS ORDERED: CLOPIDOGREL 75 MG TAB PO ONE (13:23)
[2016-10-22] MEDS ORDERED: IOHEXOL 350 MG/ML 125ML BOTTLE INJ ONE (13:23)
[2016-10-22] MEDS ORDERED: MAG HYDROX/AL HYDROX/SIMETH 30 ML CUP PO PRN (13:38)
[2016-10-22] MEDS ORDERED: RX INFO: IV CONTRAST WAS GIVEN 1 EACH MISC MISCELLANE PRN (13:38)
[2016-10-22] MEDS ORDERED: ZOLPIDEM 5 MG TAB PO PRN (13:38)
[2016-10-22] MEDS ORDERED: ATROPINE SULFATE 0.1 MG/ML 10ML SYRINGE IV PRN (13:38)
[2016-10-22] MEDS ORDERED: NITROGLYCERIN SL TABS 0.4 MG TAB SUBLINGUAL PRN ×2 (13:38→14:51)
[2016-10-22] MEDS ORDERED: SODIUM CHLORIDE 0.9% 1,000 ML in EMPTY BAG 1 BAG IV ONE (14:51)
[2016-10-22] MEDS ORDERED: ALPRAZolam 0.25 MG TAB PO PRN (14:51)
[2016-10-22] MEDS ORDERED: ATORVASTATIN 80 MG TAB PO STA (14:51)
[2016-10-22] MEDS ORDERED: ASPIRIN 325 MG TAB PO STA (14:51)
[2016-10-22] MEDS ORDERED: ALPRAZolam 0.5 MG TAB PO PRN (14:51)
[2016-10-22] MEDS: SODIUM CHLORIDE 0.9% 1,000 ML IV SCH ×2 (14:53→20:51)
[2016-10-22] MEDS ORDERED: HYDROcodone/APAP 5-325MG 1 EACH TAB PO PRN (16:33)
[2016-10-22] MEDS: HYDROmorphone 1 MG/ML 1 ML SYRINGE IVP PRN ×2 (17:16→23:50)
[2016-10-22] MEDS ORDERED: ASPIRIN 81 MG CHEW PO SCH (21:00)
[2016-10-22] MEDS ORDERED: ATORVASTATIN 80 MG TAB PO SCH (21:00)
[2016-10-23 06:13] LABS: Anisocytosis Slight; Basophils % (A) 0 %; CH 24.8; CHCM 30.7; Eosinophils # (A) 0.1 k/uL (0-0.7); Eosinophils % (A) 2 %; HCT 37.7 % (39.0-53.0); HDW 2.36; HGB 11.9 gm/dL (13.0-17.5); Hypochromasia Slight; Luc # (Auto) 0.13; Luc % (Auto) 2; Lymphocytes # (A) 1.1 k/uL (1.0-4.8); Lymphocytes % (A) 17 %; MCH 25.6 pg (25.0-35.0); MCHC 31.6 g/dL (31.0-37.0); Mean Platelet Volume 6.5; Monocytes # (A) 0.4 k/uL (0-1.0); Monocytes % (A) 6 %; Neutrophils # (A) 4.5 k/uL (1.3-7.7); Neutrophils % (A) 72 %; RBC 4.66 m/uL (4.30-5.90); RDW 16.7 % (11.5-15.5); WBC 6.2 k/uL (3.8-10.6); WBC (Perox) 6.47
[2016-10-23 07:20] LABS: Anion Gap 8 mmol/L; Blood Urea Nitrogen 13 mg/dL (9-20); Calcium 8.9 mg/dL (8.4-10.2); Carbon Dioxide 23 mmol/L (22-30); Chloride 107 mmol/L (98-107); Glucose 87 mg/dL (74-99); Non-African American GFR(MDRD) >60 (>60 ml/min/1.73 sqM); Potassium 4.5 mmol/L (3.5-5.1); Sodium 138 mmol/L (137-145)
--- NOTE | 2016-10-23 08:37 | P.DS ---
Providers Attending physician: Domo Lawson Consults: 10/22/16 13:38 Consult Physician Routine Consulting Provider: [facility] Consult Reason/Comments: Post Interventional patient Do you want consulting provider notified?: Already Contacted Primary care physician: Stated None - Discharge Diagnosis(es) (1) CAD (coronary artery disease) Current Visit: Yes Status: Acute (2) Positive cardiac stress test Current Visit: Yes Status: Acute (3) Preoperative clearance Current Visit: Yes Status: Acute Hospital Course: This patient is brought in for cardiac catheterization because of positive stress test. Patient was waiting to have a hip operation. Cardiac catheterization revealed critical lesion involving the mid LAD within the previous the stented area. Patient had repeat stenting with a drug-eluting stent. Patient tolerated the procedure well. Insure cardiac catheterization was attempted through a radial approach. However because of technical difficulties and advancing catheters. The procedure was subsequently performed from the right groin. Patient tolerated the procedure well. The right radial pulses bounding without any hematoma. The groin is soft without any hematoma. Mild ecchymosis noted. Patient is being discharged home in a stable condition. He'll be on aspirin and Plavix along with Lipitor 80 mg. He'll cut back the dose of the beta tru because of bradycardia. Follow-up in the office in one week time. Plan - Discharge Summary New Discharge Prescriptions: New Atorvastatin [Lipitor] 80 mg PO HS #90 tab Clopidogrel [Plavix] 75 mg PO DAILY #90 tab Nitroglycerin Sl Tabs [Nitrostat] 0.4 mg SUBLINGUAL Q5M PRN #30 tab PRN Reason: Chest Pain Continue Atenolol [Tenormin] 50 mg PO DAILY Aspirin [Adult Low Dose Aspirin EC] 81 mg PO HS Multivitamins, Thera [Multivitamin (formulary)] 1 each PO DAILY@1200 30 Days Lisinopril [Zestril] 10 mg PO DAILY 30 Days Omeprazole [PriLOSEC] 20 mg PO DAILY Acetaminophen [Tylenol Extra Strength] 500 mg PO Q4HR PRN PRN Reason: Pain Discontinued Simvastatin [Zocor] 20 mg PO HS Discharge Medication List Aspirin [Adult Low Dose Aspirin EC] 81 mg PO HS 05/26/15 [History] Atenolol [Tenormin] 50 mg PO DAILY 05/26/15 [History] Lisinopril [Zestril] 10 mg PO DAILY 30 Days 06/08/16 [Rx] Multivitamins, Thera [Multivitamin (formulary)] 1 each PO DAILY@1200 30 Days 10/17 [Rx] Acetaminophen [Tylenol Extra Strength] 500 mg PO Q4HR PRN 10/18/16 [History] Omeprazole [PriLOSEC] 20 mg PO DAILY 10/18/16 [History] Atorvastatin [Lipitor] 80 mg PO HS #90 tab 10/23/16 [Rx] Clopidogrel [Plavix] 75 mg PO DAILY #90 tab 10/23/16 [Rx] Nitroglycerin Sl Tabs [Nitrostat] 0.4 mg SUBLINGUAL Q5M PRN #30 tab 10/23/16 [Rx ] Follow up Appointment(s)/Referral(s): Domo Lawson MD [STAFF PHYSICIAN] - 1 Week Discharge Disposition: HOME SELF-CARE
[2016-10-23] MEDS ORDERED: ATENOLOL 25 MG TAB PO SCH (09:00)
[2016-10-23] MEDS ORDERED: LISINOPRIL 20 MG TAB PO SCH (09:00)
[2016-10-23] MEDS ORDERED: ASPIRIN 81 MG CHEW PO SCH (09:00)
[2016-10-23 09:16] VITALS: BP 151/70; PULSE 55; RESP 18; TEMP 98.1
[2016-10-23] MEDS ORDERED: MULTIVITAMINS, THERA 1 EACH TAB PO SCH (12:00)
[2016-10-23] MEDS ORDERED: CLOPIDOGREL 75 MG TAB PO SCH (14:30)
--- NOTE | 2016-10-23 20:26 | PTCA ---
DATE OF PROCEDURE: 10/22/16 PROCEDURE: PTCA and stenting of restenotic lesion in the mid LAD. PERFORMED BY: Dr. Abdoulaye Islas. CLINICAL INFORMATION: Mr. Marvin Roman is a gentleman 76 years of age with history of hypertension, hyperlipidemia, CAD, underwent stenting of mid LAD in 1997. He was seen and evaluated by Dr. Lawson preoperatively and because of abnormal stress test, he had a cardiac catheterization which revealed mid LAD lesion within the previously placed stent of about 95% and was advised intervention that was performed in the same setting. PROCEDURE NOTE: The existing 6 Faroese introducer in the right femoral artery was used to perform the procedure. I used a 3.5 curved guide catheter to cannulate the left coronary artery. A Whisper wire was used to cross the lesion. Predilation was performed using a 2.5 caliber 12 mm NC Trek balloon. I then deployed at 2.75 caliber 12 mm long drug eluting Xience stent. This was deployed at 13 atmospheres. The patient had mild chest discomfort. No EKG changes. He had excellent angiographic without complications. He received Angiomax bolus and infusion. He also received 600 mg of Plavix. Excellent angiographic result without complication was achieved. Moderate conscious sedation time was about 30 minutes. He was given Benadryl and Versed. The sheath was taken out and AngioSeal device used to secure hemostasis but because of oozing a Fem stop was applied and will be on for four hours. The results were then discussed with the patient and his . He was sent to his room in stable condition. COLIN
--- NOTE | 2016-11-05 09:55 | P.PCN ---
Date of Procedure: 11/05/16 Preoperative Diagnosis: Coronary artery disease and positive stress test Postoperative Diagnosis: Stenting of the mid LAD within the previously stented area Procedure(s) Performed: Left heart catheterization without left ventriculography Implants: Indications for Procedure: Operative Findings: Description of Procedure: HISTORY: This is a 76-year-old gentleman with history of previous ischemic heart disease who was being considered for hip surgery. Patient had a preop stress test which showed ischemia in the anterior wall and inferoapical segments. Patient is advised to have a cardiac catheterization for definitive diagnosis. CONSENT:I have discussed the risks, benefits and alternative therapies for the above-mentioned procedure and for both sedation/analgesia as well as necessary blood product administration, if indicated, as they pertain to this patient. The patient has indicated understanding and acceptance of the risks and procedures discussed. PROCEDURE: Patient was brought to the lab in a fasting state. Patient was given conscious IV sedation. Attempts were made to do cardiac catheterization from right radial approach. Right wrist was infiltrated and right femoral artery was entered using Seldinger technique. Patient was given IV verapamil. Attempts were made to pass catheters and the wires and catheters could not be advanced beyond the elbow area. Because of the technical difficulties, the procedure was abandoned and the procedure was completed to right groin approach. Angiogram of the brachial artery was obtained with manual injections. The right groin is infiltrated with lidocaine and right femoral artery was entered using Seldinger technique. A 6-[place] catheter was left in place and selective coronary arteriography and left ventriculography was performed. Patient tolerated the procedure well. Femoral angiogram was performed . Patient was found to have critical lesion in mid LAD and is waiting to have intervention by Dr. SUSANNA Islas. No immediate complications were noted and patient was transferred to [facility] in a stable condition Conscious Sedation: Versed 1 mg Fentanyl : 50 g Duration 35 minutes HEMODYNAMICS: Aortic pressure is about 130/70. Left ankle end-diastolic pressure was about 12-15. There was no gradient across the aortic valve SELECTIVE CORONARY ARTERIOGRAPHY: LEFT MAIN: Left main coronary artery is short and patent THE LEFT ANTERIOR DESCENDING CORONARY ARTERY: . This is a good caliber vessel giving rise to several septal and diagonal branches. The LAD showed about 90% stenosis involving mid LAD within the previously stented area THE LEFT CIRCUMFLEX AND IS CORONARY ARTERY: Fair caliber vessel. Free of any significant occlusive disease THE RIGHT CORONARY ARTERY: . Good caliber vessel free of any occlusive disease LEFT VENTRICULOGRAPHY: Not performed FINAL IMPRESSION: . Critical lesion involving mid LAD within the previously stented area PLAN: Stent placement of the LAD to be done by SUSANNA Islas PROGNOSIS: Fair
== END 2016-10-23 12:03 | disposition home or self-care (01) ==
LOC: CATHCVL 10:00 → 6SEL 13:23 → CATHCVL 10-23 12:03
PROVIDERS: ATTEND Internal Medicine Cardiovascular Disease
DX: I25.10 Atherosclerotic heart disease of native coronary artery without angina pectoris (principal); I10 Essential (primary) hypertension; E78.5 Hyperlipidemia, unspecified; E78.00 Pure hypercholesterolemia, unspecified; Z68.26 Body mass index [BMI] 26.0-26.9, adult; E66.3 Overweight; Z79.82 Long term (current) use of aspirin; Z79.899 Other long term (current) drug therapy; Z82.49 Family history of ischemic heart disease and other diseases of the circulatory system; Z87.891 Personal history of nicotine dependence; Z95.5 Presence of coronary angioplasty implant and graft
CPT/HCPCS: 99152; 99153; 93458; 80048; 85025; C9600; C1760; C1769 ×3; C1887; C1894 ×2; C1725; C1874; J2001; J2250; J1170 ×2; J3010; J1644; J0583; Q9967

== ENCOUNTER 2021-11-07 05:56 | Day surgery (SDC) | payer MEDICARE ==
[2021-11-06 10:44] VITALS: BMI 23.8
[~2021-11-07 05:56] MED LIST changes: -ACETAMINOPHEN TAB 500 MG TAB PO ONE; +ALPRAZolam 0.25 MG TAB PO PRN; +ALPRAZolam 0.5 MG TAB PO PRN; +ASPIRIN 325 MG TAB PO STA; -DEXAMETHASONE SOD PHOSPHATE 10 MG/ML 1 ML VIAL IV ONE; -HYDROmorphone 1 MG/ML 1 ML SYRINGE IVP PRN; -LACTATED RINGERS 1,000 ML IV SCH; -MELOXICAM 7.5 MG TAB PO ONE; +NITROGLYCERIN SL TABS 0.4 MG TAB SUBLINGUAL PRN; -ONDANSETRON 4 MG/2 ML VIAL IVP ONE; -ROPIVACAINE 246.25 MG, EPINEPHrine 0.5 MG, KETOROLAC 30 MG, cloNIDine HCL/PF 80 MCG, WA... MISCELLANE ONE; +SODIUM CHLORIDE 0.9% 1,000 ML in EMPTY BAG 1 BAG IV SCH; -TRANEXAMIC ACID 1,000 MG in SODIUM CHLORIDE 0.9% 100 ML IVPB ONE; -ceFAZolin 2 GM in SODIUM CHLORIDE 0.9% 100 ML IVPB ONE
[2021-11-07 06:28] VITALS: RESP 18; TEMP 97.9
[2021-11-07 07:08] LABS: Basophils # (A) 0.1 k/uL (0-0.2); Basophils % (A) 1 %; Eosinophils # (A) 0.2 k/uL (0-0.7); Eosinophils % (A) 2 %; HCT 40.6 % (39.0-53.0); HGB 12.6 gm/dL (13.0-17.5); Lymphocytes # (A) 1.5 k/uL (1.0-4.8); Lymphocytes % (A) 12 %; MCH 27.2 pg (25.0-35.0); MCHC 31.2 g/dL (31.0-37.0); MCV 87.3 fL (80.0-100.0); Mean Platelet Volume 7.1; Monocytes # (A) 0.6 k/uL (0-1.0); Monocytes % (A) 5 %; Neutrophils # (A) 9.6 k/uL (1.3-7.7); Neutrophils % (A) 78 %; Platelet Count 367 k/uL (150-450); RBC 4.65 m/uL (4.30-5.90); RDW 13.3 % (11.5-15.5); WBC 12.3 k/uL (3.8-10.6)
[2021-11-07 07:19] LABS: Calcium 9.2 mg/dL (8.4-10.2); Potassium 4.4 mmol/L (3.5-5.1)
[2021-11-07] MEDS: fentaNYL (PF) 50 MCG/ML 2 ML AMP IV ONE ×2 (07:48→08:01)
[2021-11-07] MEDS: MIDAZOLAM 2 MG/2 ML VIAL IV ONE ×2 (07:48→08:01)
[2021-11-07] MEDS ORDERED: LIDOCAINE 1% INJ 10MG/ML (5 ML VIAL-PF) SQ ONE (07:50)
[2021-11-07] MEDS ORDERED: VERAPAMIL SYRINGE (5 MG/10 ML) INTRAARTER ONE (07:52)
[2021-11-07] MEDS: NITROGLYCERIN 1000MCG/10ML SYRINGE INTRAARTER ONE ×3 (07:59→08:12)
[2021-11-07] MEDS ORDERED: HEPARIN SODIUM 1,000 UN/ML (10ML VL) IV ONE (08:02)
[2021-11-07] MEDS ORDERED: IOPAMIDOL-370 125ML BTL INJ ONE (08:13)
--- NOTE | 2021-11-07 08:26 | P.CARDCATH ---
Description of Procedure: PROCEDURES PERFORMED: Left heart catheterization, bilateral coronary angiography INDICATION: Syncope, elevated troponins CONSENT:I have discussed the risks, benefits and alternative therapies for the above-mentioned procedure and for both sedation/analgesia as well as necessary blood product administration, if indicated, as they pertain to this patient. The patient has indicated understanding and acceptance of the risks and procedures discussed. PROCEDURE: After the risks, benefits and alternatives of the above mentioned procedure explained in detail with the patient, informed consent was obtained. Patient was taken to the catheterization lab and prepped and draped in usual fashion. There was prior concern about right radial approach with possible tortuosity and therefore left radial approach was used. 1% lidocaine was used to anesthetize the left radial artery. A 6-[place] sheath was placed in the right radial artery using modified Seldinger technique. There was a small left radial loop which was easily maneuvered however there was some vasospasm throughout the procedure. Left coronary angiography was performed with a 5- [place] JL 4.0 catheter and right coronary angiography was performed with a 5- [place] JR5 catheter in various views. A 5-[place] FR5 catheter was inserted into the left ventricle and pressure measurements were obtained. The right radial sheath was removed and a TR band was placed with hemostasis achieved. The patient tolerated the procedure well. Patient was transported back to the post catheterization holding area in stable condition. Conscious Sedation: Patient was monitored under the direct supervision of vision of myself for conscious sedation using Versed and fentanyl for a total duration of 27 minutes HEMODYNAMICS: Aorta: 128/59 LV: 129/1, LVEDP 7 SELECTIVE CORONARY ARTERIOGRAPHY: LEFT MAIN: The left main is a large caliber vessel which bifurcates into the LAD and circumflex. There is no significant stenosis. LEFT ANTERIOR DESCENDING CORONARY ARTERY: LAD is a large caliber vessel which wraps around to the apex. There is a mid LAD stent which is patent however at the distal edge of the stent there is a 50% stenosis. LEFT CIRCUMFLEX CORONARY ARTERY: Left circumflex is a moderate caliber vessel without significant stenosis. RIGHT CORONARY ARTERY: The right coronary artery is a large caliber vessel which gives off a PDA and PLV branch and is the dominant vessel. There is no significant stenosis. FINAL IMPRESSION: 1. Relatively normal coronary arteries other than an mid LAD stent with 50% in- stent stenosis. 2. Low normal left sided filling pressures PLAN: 1. Aggressive risk factor modification per most recent ACC/AHA guidelines. 2. Follow-up in the office in 1-2 weeks.
[2021-11-07] MEDS ORDERED: SODIUM CHLORIDE 0.9% 500 ML 500 ML IV ONE (10:00)
[2021-11-07 12:34] VITALS: BP 112/59; PULSE 52
== END 2021-11-07 12:34 | disposition home or self-care (01) ==
LOC: CATHCVL 05:56
PROVIDERS: ATTEND Internal Medicine
DX: I25.10 Atherosclerotic heart disease of native coronary artery without angina pectoris (principal); I10 Essential (primary) hypertension; I48.0 Paroxysmal atrial fibrillation; E78.5 Hyperlipidemia, unspecified; Z79.82 Long term (current) use of aspirin; Z79.01 Long term (current) use of anticoagulants; Z20.822 Contact with and (suspected) exposure to COVID-19; Z95.5 Presence of coronary angioplasty implant and graft; Z79.899 Other long term (current) drug therapy
CPT/HCPCS: 93458; 80048; 85025; 87635; C1769; C1894; J2250; J2001; J3010; J1644; Q9967

== ENCOUNTER → 2022-07-13 | Outpatient (CLI) | payer MEDICARE ==
--- NOTE | 2022-07-17 20:53 | MR ---
EXAMINATION TYPE: MR hand RT wo con DATE OF EXAM: 07/13/2022 COMPARISON: NONE HISTORY: 82-year-old male M79.644, Right thumb red/swollen x 2 mos, no trauma. TECHNIQUE: Multiplanar, multisequence images of the right were obtained without IV contrast. FINDINGS: There is scattered moderate to severe osteoarthritic change throughout including the MCP and IP joint s, particularly advanced at the first IP joint and second and third MCP joints. Along the ulnar and volar aspect of the thumb soft tissues, there is a cyst measuring up to 3.5 cm lo ng directly superficial to the flexor tendon. This measures up to 2.1 cm wide and 1.3 cm thick. Prominent dorsal spur fragmentation with associated IP joint effusion. No acute or healing fracture or abnormal bone marrow replacement is seen. IMPRESSION: 1. Severe osteoarthritic change at the first IP joint as well as the second and third MCP joints. Ass ociated dorsal spur fragmentation and joint effusion at the first IP joint. 2. Large subcutaneous cyst along the palmar and ulnar aspect of the thumb measuring 3.5 x 2.1 x 1.3 c m, located under the skin surface and superficial to the flexor tendon. A large ganglion cyst or adve ntitial bursa are considerations. Infective fluid is considered less likely. Consider aspiration and fluid analysis. 3. No acute or healing fracture or abnormal bone marrow replacement is seen.
== END | disposition home or self-care (01) ==
LOC: RADMRIMAIN 11:53
PROVIDERS: ATTEND Orthopaedic Surgery Hand Surgery
DX: M19.041 Primary osteoarthritis, right hand (principal); M25.441 Effusion, right hand